=== PATIENT | male | born 1955 | race Caucasian/White ===

== ENCOUNTER 2020-05-27 16:06 | Observation (INO) | payer MEDICARE ==
--- NOTE | 2020-05-27 16:15 | ERPHSYRPT ---
- History of Present Illness Time Seen by Provider: 05/27/20 16:13 Source: patient Exam Limitations: no limitations Physician History: Patient is a 65-year-old male referred to our ED from her primary care doctor for evaluation of possible PE. Patient was diagnosed with a DVT today. Patient has been complaining of some shortness of breath. Patient has a history of PE DVT. Patient previously on blood thinner. Patient blood thinners were discontinued prior to the onset of current symptomology. No associated nausea or vomiting. No chest pain. Patient currently on antibiotics for cellulitis of the right lower extremity. Patient voices no other complaints. Timing/Duration: today Severity: moderate Modifying Factors: Improves With: other Associated Symptoms: shortness of breath, No nausea, No vomiting, No heartburn, No diaphoresis, No cough, No chills, No chest pain, No fever, No weakness Allergies/Adverse Reactions: rosuvastatin calcium [From Crestor] Adverse Reaction (Mild, Verified 05/27/20 16:15) Home Medications: Diclofenac Sodium [Diclofenac Sodium ER] 100 mg PO DAILY 05/27/20 [History] Hx Tetanus, Diphtheria Vaccination/Date Given: No Hx Influenza Vaccination/Date Given: No Hx Pneumococcal Vaccination/Date Given: No Travel Risk - International Travel Have you traveled outside of the country in past 3 weeks: No - Coronavirus Screening Are you exhibiting any of the following symptoms?: No Close contact with a COVID-19 positive Pt in past 14-21 Days: No - Review of Systems Constitutional: No Symptoms, No Fever, No Chills Eyes: No Symptoms Ears, Nose, & Throat: No Symptoms Respiratory: No Symptoms, No Cough, No Dyspnea Cardiac: No Symptoms, No Chest Pain, No Edema, No Syncope Abdominal/Gastrointestinal: No Symptoms, No Abdominal Pain, No Nausea, No Vomiting, No Diarrhea Genitourinary Symptoms: No Symptoms, No Dysuria Musculoskeletal: No Symptoms, No Back Pain, No Neck Pain Skin: No Symptoms, No Rash Neurological: No Symptoms, No Dizziness, No Focal Weakness, No Sensory Changes Psychological: No Symptoms Endocrine: No Symptoms Hematologic/Lymphatic: No Symptoms Immunological/Allergic: No Symptoms All Other Systems: Reviewed and Negative - Past Medical History Pertinent Past Medical History: Yes Neurological History: No Pertinent History ENT History: No Pertinent History Cardiac History: No Pertinent History Respiratory History: Asthma Endocrine Medical History: No Pertinent History Musculoskeletal History: No Pertinent History GI Medical History: Hernia, Ulcer History: No Pertinent History Psycho-Social History: Attention Deficit Disorder, Depression, Other Male Reproductive Disorders: No Pertinent History 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 - Past Surgical History Past Surgical History: Yes Neuro Surgical History: No Pertinent History Cardiac: No Pertinent History Respiratory: No Pertinent History Gastrointestinal: Hernia Repair Genitourinary: No Pertinent History Musculoskeletal: No Pertinent History Male Surgical History: Vasectomy Other Surgical History: CYST REMOVED - Social History Smoking Status: Never smoker Exposure to second hand smoke: No Drug Use: none Patient Lives Alone: No - Nursing Vital Signs Nursing Vital Signs: Initial Vital Signs Temperature 97.1 F 05/27/20 16:07 Pulse Rate 74 05/27/20 16:07 Respiratory Rate 16 05/27/20 16:07 Blood Pressure 141/81 05/27/20 16:07 O2 Sat by Pulse Oximetry 96 05/27/20 16:07 Pain Scale Pain Intensity 0 - Physical Exam General Appearance: no apparent distress, alert Eye Exam: PERRL/EOMI, eyes nml inspection Ears, Nose, Throat Exam: normal ENT inspection, TMs normal, pharynx normal, moist mucous membranes Neck Exam: normal inspection, non-tender, supple, full range of motion Respiratory Exam: normal breath sounds, lungs clear, No respiratory distress Cardiovascular Exam: regular rate/rhythm, normal heart sounds, normal peripheral pulses Gastrointestinal/Abdomen Exam: soft, normal bowel sounds, No tenderness, No mass Male Genitalia Exam: normal genitalia Back Exam: normal inspection, normal range of motion, No CVA tenderness, No aysha tebral tenderness Extremity Exam: normal inspection, normal range of motion, pelvis stable Neurologic Exam: alert, oriented x 3, cooperative, normal mood/affect, nml cerebellar function, nml station & gait, sensation nml, No motor deficits Skin Exam: normal color, warm, dry, No rash Lymphatic Exam: No adenopathy SpO2: 96 - Course Nursing assessment & vital signs reviewed: Yes EKG Interpreted by Me: RATE (66), Sinus Rhythm, NORMAL AXIS, NORMAL INTERVALS - CT Exams Chest CT Interpretation: Tele-radiologist Report (Pulmonary embolism.) Ordered Tests: Active Orders 24 hr Category Date Time Status [employer] STAT Care 05/27/20 16:16 Active EKG-ER Only STAT Care 05/27/20 16:15 Active IV Insertion STAT Care 05/27/20 16:15 Active Pulse Oximetry (ED) STAT Care 05/27/20 16:15 Active CHEST WITH CONTRAST [CT] Stat Exams 05/27/20 18:22 Taken CBC W DIFF Stat Lab 05/27/20 16:37 Completed CMP Stat Lab 05/27/20 16:37 Completed PROTIME WITH INR Stat Lab 05/27/20 16:37 Completed PTT Stat Lab 05/27/20 16:37 Completed TROPONIN Q3H Lab 05/27/20 16:37 Completed TROPONIN Q3H Lab 05/27/20 19:45 Completed TROPONIN Q3H Lab 05/27/20 22:30 Ordered TROPONIN Q3H Lab 05/28/20 01:30 Ordered TROPONIN Q3H Lab 05/28/20 04:30 Ordered Transfer Order Routine Transfer 05/27/20 Ordered Medication Summary Discontinued Medications Generic Name Dose Route Start Last Admin Trade Name Freq PRN Reason Stop Dose Admin Enoxaparin Sodium 100 mg 05/27/20 21:32 Enoxaparin Sodium SQ 05/27/20 21:33 STAT ONE Lab/Rad Data: Laboratory Result Diagrams 05/27/20 16:37 05/27/20 16:37 Laboratory Results 05/27/20 05/27/20 05/27/20 Range/Units 19:45 16:37 16:37 WBC (4.0-10.5) K/mm3 RBC (4.1-5.6) M/mm3 Hgb (12.5-18.0) gm/dl Hct (42-50) % MCV (78-100) fl MCH (26-32) pg MCHC (32-36) g/dl RDW (11.5-14.0) % Plt Count (150-450) K/mm3 MPV (7.5-11.0) fl Gran % (36.0-66.0) % Eos # (Auto) (0-0.5) Absolute Lymphs (auto) (1.0-4.6) Absolute Monos (auto) (0.0-1.3) Lymphocytes % (24.0-44.0) % Monocytes % (0.0-12.0) % Eosinophils % (0.00-5.0) % Basophils % (0.0-0.4) % Absolute Granulocytes (1.4-6.9) Basophils # (0-0.4) PT 13.4 H (8.83-12.87) SECONDS INR 1.18 (0.8-3.0) APTT 29.8 (24.1-36.1) SECONDS Sodium (137-145) mmol/L Potassium (3.5-5.1) mmol/L Chloride (98-107) mmol/L Carbon Dioxide (22-30) mmol/L Anion Gap (5-15) MEQ/L BUN (9-20) mg/dL Creatinine (0.66-1.25) mg/dL Estimated GFR ML/MIN Glucose (74-106) mg/dL Calcium (8.4-10.2) mg/dL Total Bilirubin (0.2-1.3) mg/dL AST (17-59) U/L ALT (0-50) U/L Alkaline Phosphatase (38-126) U/L Troponin I < 0.012 < 0.012 (0.000-0.034) ng/mL Serum Total Protein (6.3-8.2) g/dL Albumin (3.5-5.0) g/dL 05/27/20 05/27/20 Range/Units 16:37 16:37 WBC 9.0 (4.0-10.5) K/mm3 RBC 5.26 (4.1-5.6) M/mm3 Hgb 15.8 (12.5-18.0) gm/dl Hct 48.1 (42-50) % MCV 91.4 (78-100) fl MCH 30.0 (26-32) pg MCHC 32.8 (32-36) g/dl RDW 14.7 H (11.5-14.0) % Plt Count 219 (150-450) K/mm3 MPV 9.5 (7.5-11.0) fl Gran % 60.7 (36.0-66.0) % Eos # (Auto) 0.42 (0-0.5) Absolute Lymphs (auto) 2.29 (1.0-4.6) Absolute Monos (auto) 0.79 (0.0-1.3) Lymphocytes % 25.5 (24.0-44.0) % Monocytes % 8.8 (0.0-12.0) % Eosinophils % 4.7 (0.00-5.0) % Basophils % 0.3 (0.0-0.4) % Absolute Granulocytes 5.46 (1.4-6.9) Basophils # 0.03 (0-0.4) PT (8.83-12.87) SECONDS INR (0.8-3.0) APTT (24.1-36.1) SECONDS Sodium 138 (137-145) mmol/L Potassium 3.9 (3.5-5.1) mmol/L Chloride 104 (98-107) mmol/L Carbon Dioxide 25 (22-30) mmol/L Anion Gap 12.1 (5-15) MEQ/L BUN 19 (9-20) mg/dL Creatinine 0.95 (0.66-1.25) mg/dL Estimated GFR > 60.0 ML/MIN Glucose 90 (74-106) mg/dL Calcium 9.2 (8.4-10.2) mg/dL Total Bilirubin 0.70 (0.2-1.3) mg/dL AST 26 (17-59) U/L ALT 24 (0-50) U/L Alkaline Phosphatase 116 (38-126) U/L Troponin I (0.000-0.034) ng/mL Serum Total Protein 7.5 (6.3-8.2) g/dL Albumin 4.3 (3.5-5.0) g/dL - Progress Progress: improved Progress Note: Patient reassessed. Patient stable. No active shortness of breath. CTA chest reveals pulmonary embolism. Patient also known to have a right lower extremity DVT. Case discussed with Dr. Novoa who accepts admission to observation. Dr. ocampoonded on consult. Plan of care discussed with patient. He agrees to admission to [facility] for further evaluation and treatment. Lovenox dosed. 05/27/20 21:45 Discussed with : Flaco Will see patient in: hospital (observation) Counseled pt/family regarding: lab results, diagnosis, need for follow-up, rad results - Departure Departure Disposition: In-patient Admission Clinical Impression: Pulmonary embolism, DVT (deep venous thrombosis) Condition: Stable Critical Care Time: No Referrals: DAVEY PERLA, [Primary Care Provider] -
[2020-05-27 16:40] LABS: Absolute Neutrophil Ct (ANC) 5.46 (1.4-6.9); BASOPHIL % 0.3 % (0.0-0.4); Basophil (Absolute #) 0.03 (0-0.4); Eosinophil % 4.7 % (0.00-5.0); Eosinophil (Absolute #) 0.42 (0-0.5); Hematocrit 48.1 % (42-50); Hemoglobin 15.8 gm/dl (12.5-18.0); Lymphocyte (Absolute #) 2.29 (1.0-4.6); Lymphocytes % 25.5 % (24.0-44.0); Mean Cell Volume 91.4 fl (78-100); Mean Corpuscular Hgb Concent. 32.8 g/dl (32-36); Mean Platelet Volume 9.5 fl (7.5-11.0); Monocyte (Absolute #) 0.79 (0.0-1.3); Monocytes % 8.8 % (0.0-12.0); Neutrophil % 60.7 % (36.0-66.0); Platelet Count 219 K/mm3 (150-450); Red Blood Count 5.26 M/mm3 (4.1-5.6); Red Cell Distribution Width 14.7 % (11.5-14.0)
[2020-05-27 16:46] LABS: INR 1.18 (0.8-3.0); PROTIME 13.4 SECONDS (8.83-12.87)
[2020-05-27 16:49] LABS: PTT 29.8 SECONDS (24.1-36.1)
[2020-05-27 16:52] LABS: ALBUMIN 4.3 g/dL (3.5-5.0); ALKALINE PHOSPHATASE 116 U/L (38-126); ANION GAP 12.1 MEQ/L (5-15); BLOOD UREA NITROGEN 19 mg/dL (9-20); CHLORIDE 104 mmol/L (98-107); Calcium 9.2 mg/dL (8.4-10.2); Carbon Dioxide 25 mmol/L (22-30); Creatinine 1 0.95 mg/dL (0.66-1.25); Glucose 90 mg/dL (74-106); Potassium 3.9 mmol/L (3.5-5.1); SGOT/AST 26 U/L (17-59); SGPT/ALT 24 U/L (0-50); SODIUM 138 mmol/L (137-145); Total Protein 7.5 g/dL (6.3-8.2)
[2020-05-27] MEDS ORDERED: ENOXAPARIN SODIUM SQ ONE ×2 (21:32→21:57)
[2020-05-27] MEDS ORDERED: ENOXAPARIN SODIUM SQ STA (22:00)
[2020-05-28 06:05] LABS: Absolute Neutrophil Ct (ANC) 3.36 (1.4-6.9); BASOPHIL % 0.4 % (0.0-0.4); Basophil (Absolute #) 0.03 (0-0.4); Eosinophil % 6.4 % (0.00-5.0); Eosinophil (Absolute #) 0.43 (0-0.5); Hematocrit 45.2 % (42-50); Hemoglobin 14.7 gm/dl (12.5-18.0); Lymphocyte (Absolute #) 2.21 (1.0-4.6); Lymphocytes % 32.9 % (24.0-44.0); Mean Cell Volume 92.4 fl (78-100); Mean Corpuscular Hemoglobin 30.1 pg (26-32); Mean Corpuscular Hgb Concent. 32.5 g/dl (32-36); Mean Platelet Volume 9.6 fl (7.5-11.0); Monocyte (Absolute #) 0.69 (0.0-1.3); Monocytes % 10.3 % (0.0-12.0); Platelet Count 217 K/mm3 (150-450); Red Blood Count 4.89 M/mm3 (4.1-5.6); Red Cell Distribution Width 14.9 % (11.5-14.0); White Blood Count 6.7 K/mm3 (4.0-10.5)
[2020-05-28 06:40] LABS: ALKALINE PHOSPHATASE 102 U/L (38-126); ANION GAP 9.4 MEQ/L (5-15); BLOOD UREA NITROGEN 17 mg/dL (9-20); CHLORIDE 102 mmol/L (98-107); Calcium 8.9 mg/dL (8.4-10.2); Carbon Dioxide 30 mmol/L (22-30); Creatinine 1 0.97 mg/dL (0.66-1.25); Glucose 92 mg/dL (74-106); Potassium 4.2 mmol/L (3.5-5.1); SGOT/AST 24 U/L (17-59); SGPT/ALT 22 U/L (0-50); SODIUM 137 mmol/L (137-145); Total Protein 6.9 g/dL (6.3-8.2)
[2020-05-28 06:49] LABS: TROPONIN < 0.012 ng/mL (0.000-0.034)
--- NOTE | 2020-05-28 09:06 | XRAY ---
Exam: CT of the chest with IV contrast from 05/27/2020. CTDI: 44.72 mGy Comparison: CT of the chest with IV contrast from 11/29/2014. Indication: Right leg numbness, history of DVT in right leg, rule out PE. Technique: Post-IV contrast axial images were obtained through the chest during and following automated injection of 100 cc of Isovue-370 contrast material per PE protocol. Reconstructed coronal and sagittal images were created and reviewed. Findings: I again see multiple filling defects bilaterally within the distal left distal left main pulmonary artery, both lower lobe segmental arteries, and the left upper lobe pulmonary arteries consistent with extensive pulmonary embolism. Clot burden is at least moderate. There is relative sparing of the left upper lobe pulmonary arteries. The thoracic aorta appears of normal diameter and reveals no aneurysm or dissection. The heart size is normal without pericardial effusion. Bilateral epicardial fat pads are seen at the cardiophrenic angles. The thyroid gland appears grossly unremarkable. No abnormal mediastinal or perihilar lymphadenopathy is seen. There is a small hiatal hernia with mild surrounding fat density. The lungs reveal mild scattered bibasilar linear scarring and/or atelectasis. No airspace infiltrate or suspicious soft tissue lung nodule is seen. There is a small calcified granuloma seen at the medial aspect of the right middle lobe. The visualized upper abdomen reveals an unremarkable appearance of the adrenal glands. No other significant gross abnormality within the upper abdomen is seen. The skeleton reveals no acute fracture or aggressive bone lesion. Moderate degenerative disc disease is seen within the lower cervical spine. I also note moderate spondylosis with prominent osteophyte formation within the mid and lower thoracic spine, as well as the upper lumbar spine. Impression: 1. Compared to the prior CT of the chest from 11/29/2014, I again see moderately extensive bilateral pulmonary emboli with relative sparing of the right upper lobe segmental arteries. 2. Minimal scattered bibasilar fibrosis/scarring is seen. No acute infiltrates or pleural fluid is seen. 3. I again see a small hiatal hernia representing no change.
[2020-05-28] MEDS: NORCO 5/325 MG PO PRN (11:37)
--- NOTE | 2020-05-28 13:53 | PCM.HP.ADD ---
Addendum to History & Physical - History & Physical Addendum Addendum to History & Physical: This certifies that the History & Physical in the electronic chart reflects the current health status of the patient. If there are changes in the H&P these changes/exceptions are listed as follows. See office visit day of admission,no changes.
[2020-05-28] MEDS: VITAMIN D PO SCH (16:09)
[2020-05-28] MEDS ORDERED: ELIQUIS 2.5 MG TABLET PO SCH (18:00)
[2020-05-28] MEDS ORDERED: ELIQUIS 2.5 MG TABLET ONE (18:02)
[2020-05-28] MEDS: ELIQUIS 2.5 MG TABLET PO SCH (19:04)
[2020-05-29] MEDS: NORCO 5/325 MG PO PRN (04:08)
--- NOTE | 2020-05-29 08:48 | CONS ---
CONSULT DATE: 05/28/2020 HISTORY: Bandar Byers is a 65 year old male who has had previous history of deep venous thrombosis and pulmonary embolism back in 2012 and 2013. The patient reportedly was treated with anticoagulation for roughly about three to three and a half years at that time and was advised to go off of anticoagulation. He started experiencing right lower extremity swelling and tingling. He was initially suspected of having cellulitis and was treated with antibiotics. Although his symptoms persisted leading to additional studies including a Doppler that showed extensive deep venous thrombosis involving right lower extremity all the way from groin to medial malleolus. The patient has been hospitalized. He had a CT chest performed last night that showed multiple pulmonary emboli as well as involving multiple bilateral branches only sparing the right upper lobe area. The patient has been experiencing some shortness of breath. The patient reportedly started having symptoms after undergoing hernia repair surgery in 2012. He was advised rest in order to not have the hernia recur. He was treated back then with Xarelto and although it helped him it caused significant leg cramps. After about a year and a half of treatment, he was seen by a photographic lithographer in [place], [place] and was advised switching him to Coumadin. The patient again took Coumadin for about a year and a half. Apparently at that point he was advised to stop Coumadin and start aspirin. The patient has otherwise been in good health. He denies any previous pulmonary problems. A CT chest performed yesterday also shows some bilateral basilar fibrotic changes which will require monitoring in the future. PAST MEDICAL HISTORY: Besides the above history, the patient has had history of osteoarthritis likely from his body habitus. He has been on diclofenac sodium 100 mg daily for extended period of time. He denies history of cardiac problems, hypertension, diabetes or any other common medical problems. He has not followed up regularly with physician due to lack of insurance until he turned 65. PAST SURGICAL HISTORY: As above. PERSONAL AND SOCIAL HISTORY: He has been a nonsmoker but did have exposure to secondhand smoke from his father. MEDICATIONS: Home and current medications are reviewed. ALLERGIES: ROSUVASTATIN CALCIUM. REVIEW OF SYSTEMS: Positive for right leg pain, swelling and mild shortness of breath mainly with activity. He also reports significant knee pain and reportedly is in need of knee replacement at some point in the future. PHYSICAL EXAMINATION: This is an elderly male who appears otherwise very comfortable, able to carry on a good conversation, does not appear short of breath at rest. Vital signs are noted. HEENT: Normocephalic. Oral exam shows small oropharynx. NECK: Supple. CVS: First and second heart sounds are normal, regular, rhythmic. RESPIRATORY: Shows diminished breath sounds. ABDOMEN: Obese. EXTREMITIES: Right lower extremity appears swollen compared to left. LABORATORY DATA AND TESTS: CT chest and venous Doppler were reviewed. ASSESSMENT: This is a 65 year old male admitted with recurrent right lower extremity deep venous thrombosis with pulmonary emboli. It almost certainly appears that he has been having small clots over a period of time given the significant clot burden seen on CT scan. 1) Multiple bilateral pulmonary emboli. 2) Right lower extremity deep venous thrombosis, recurrent. 3) History of osteoarthritis and obesity. RECOMMENDATIONS: 1) I had a long discussion with the patient regarding the current coagulation. He has tried Xarelto in the past and other than cost factor no reservations. However request a different type if possible. Option of Eliquis along with alternative of Lovenox plus Coumadin were discussed with the patient. The patient and are in agreement with starting Eliquis. In view of this I would recommend restarting him back on Eliquis 10 mg p.o. b.i.d. for seven days followed by 5 mg p.o. b.i.d. The patient will need treatment for at least four months at which point a CT scan can be obtained with Doppler's to document resolution. Should he require surgery particularly orthopedic in the future, he may be briefly taken off at that point. He would also benefit from hypercoag work up this also can be done at a later point. 2) Will obtain 2D echocardiogram mainly to assess right ventricular pressure, pulmonary artery pressure given significant clot burden. 3) Risks, benefits, potential complications and precautions to exert while being on anticoagulation were discussed as well. The patient verbalized complete understanding and will request case management to get his [place] lightpon which will at least make it affordable for the first month. 4) The patient has been on NSAID's for prolonged period. Particularly given that he is going back on anticoagulation, I would prefer to switch his pain medications to [place] 5/325 mg every 12 hours PRN. Once the patient's clot burden has resolved and he receives the required total knee replacement surgery, he can certainly be able to go off of it at this point. However, a narcotic pain medication would be way safer from GI and renal standpoint. A prescription for both was left on the chart. I will see him in about two weeks or earlier if needed. I provided his with my office number as well. If any questions regarding Bandar Byers's care remains unanswered, please feel free to call me. Thank you, Dr. Frankel, for allowing me to participate in the care of Bandar Byers.
[2020-05-29] MEDS ORDERED: CHOLECALCIFEROL PO SCH (10:00)
[2020-05-29] MEDS: ELIQUIS 2.5 MG TABLET PO SCH (10:07)
[2020-05-29] MEDS: VITAMIN D PO SCH (10:08)
--- NOTE | 2020-05-29 11:51 | PCM.SSS ---
History of Present Illness - Chief Complaint Chief Complaint: DVT History of Present Illness: is a 65 year old male who was seen the day of admission in my office as a new patient visit and for follow up cellulitis right leg. He was seen at [facility] c/o fever and right leg redness a week ago , treated with Keflex for cellulitis. Because of patient's Hx of previous PE and left LE DVT stat doppler was done and was positive for extensive DVT right lower extremity. He was taken to ER for chest CT which was positive for PE. 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 - Review of Systems Constitutional: No Symptoms Ears, Nose, & Throat: Other (chronic sinusitis/allergies) Respiratory: Short Of Breath (states on exertion,felt to be from deconditioning) Cardiac: Edema (bilateral LE,denies chest pain or palpitations) Genitourinary Symptoms: No Symptoms Musculoskeletal: Back Pain, Joint Pain (knee OA ,hopes to have knee replacement this winter) Skin: Other (see HPI) Psychological: No Symptoms Hematologic/Lymphatic: Other (see HPI) Immunological/Allergic: Grass Allergy, Pollen Allergy Medications & Allergies Home Medications: Home Medication List Cholecalciferol (Vitamin D3) [Vitamin D] 1 cap PO DAILY 05/27/20 [History Confirmed 05/27/20] Diclofenac Sodium [Diclofenac Sodium ER] 100 mg PO DAILY 05/27/20 [History Confirmed 05/27/20] Apixaban [Eliquis] 5 mg PO BID 30 Days #60 tablet 05/28/20 [Rx] Apixaban [Eliquis] 10 mg PO BID 7 Days #28 tablet 05/28/20 [Rx] Allergies/Adverse Reactions: Allergies Allergy/AdvReac Type Severity Reaction Status Date / Time rosuvastatin calcium AdvReac Mild Verified 05/27/20 16:15 [From Crestor] - Past Medical History Past Medical History: Yes Neurological History: No Pertinent History ENT History: No Pertinent History, Other (chronic seasonal sinusitis) Cardiac History: No Pertinent History, Deep Vein Thrombosis Respiratory History: Asthma, Pulmonary Embolism (2012/2013) Endocrine Medical History: Other (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) Musculoskelatal History: No Pertinent History, Arthritis (knees and spine) GI Medical History: Hernia (umbilical hernia repair 2012), Ulcer History: No Pertinent History Pyscho-Social History: Attention Deficit Disorder, Depression, Other Male Reproductive Disorders: No Pertinent History Comment: 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, DVT LLE, PE - Past Surgical History Past Surgical History: Yes Neuro Surgical History: No Pertinent History Cardiac History: No Pertinent History Respiratory Surgery: No Pertinent History GI Surgical History: Hernia Repair Genitourinary Surgical Hx: No Pertinent History Musculskeletal Surgical Hx: No Pertinent History Male Surgical History: Vasectomy Other Surgical History: CYST REMOVED - Social History Smoking Status: Never smoker Exposure to second hand smoke: No Alcohol: None Drug Use: none - Physical Exam Vital Signs: Vital Signs - 24 hr Temp Pulse Resp BP Pulse Ox 05/29/20 10:07 93 L 05/29/20 07:50 97.6 F 69 20 104/59 93 L 05/29/20 04:04 98.3 F 83 19 124/78 93 L 05/28/20 23:41 98.2 F 74 18 125/58 88 L 05/28/20 21:15 93 L 05/28/20 20:00 98.6 F 80 16 131/63 93 L 05/28/20 16:00 98.2 F 67 16 140/91 94 L 05/28/20 12:00 98.2 F 70 16 137/91 95 General Appearance: no apparent distress, obese Neurologic Exam: alert, oriented x 3, cooperative, normal mood/affect, other (no focal neuro defecits) Eye Exam: eyes nml inspection Ears, Nose, Throat Exam: normal ENT inspection, moist mucous membranes Neck Exam: normal inspection, non-tender, other (no carotid bruit,no JVD,no mass,thyroid palpable nontender) Respiratory Exam: diminished breath sounds (wheeze no ronchi no rales no pain or cough with deep breath) Cardiovascular Exam: regular rate/rhythm, normal heart sounds, edema (bilateral LE right > left) Gastrointestinal/Abdomen Exam: soft, normal bowel sounds (nontender) Rectal Exam: not done Extremity Exam: normal range of motion, swelling (bilateral LE generalized non pitting edema ,right with slight redness compaired to the left,no calf tenderness), other (DJD changes bilateral knees not red or hot.) Skin Exam: normal color, warm, dry Results - Radiology Impressions Radiology Exams & Impressions: Radiology Procedures Category Date Time Status CHEST WITH CONTRAST [CT] Stat Exams 05/27/20 18:22 Completed ECHO W/2D AND DOPPLER [US] Routine Exams 05/29/20 08:00 Taken Assessment/Plan (1) DVT (deep venous thrombosis) Current Visit: Yes Status: Acute Qualifiers: DVT location: lower extremity Chronicity: acute Laterality: right Assessment & Plan: extensive (2) Pulmonary embolism Current Visit: Yes Status: Acute Assessment & Plan: appears subacute-see Dr Morton's consult notes Code(s): I26.99 - OTHER PULMONARY EMBOLISM WITHOUT ACUTE COR PULMONALE (3) Hypoxia, sleep related Current Visit: Yes Status: Acute Onset Date: Unknown Code(s): G47.34 - IDIO SLEEP RELATED NONOBSTRUCTIVE ALVEOLAR HYPOVENTILATION (4) DJD (degenerative joint disease) Current Visit: Yes Status: Chronic Qualifiers: Osteoarthritis location: knee Laterality: bilateral Assessment & Plan: Diclofenac discontinued. Code(s): M19.90 - UNSPECIFIED OSTEOARTHRITIS, UNSPECIFIED SITE Hospital Summary - Hospital Course Hospital Course: Patient was admitted for OBS after Dg DVT RLE and PE. He was given Lovenox injection in ER. He had stable VS with sats in the mid 90s while awake and no dyspnea at rest or with moving about in the room. He did not have cough or chest pain or palpitations. He did have desaturation to 87% during sleep . Pulmonology consult with Dr Morton was appreciated and he agreed patient could be discharged on Eliquis 10 mg BID after ECHO. An overnight oximetry study will be completed at home.We discussed that he will no be able to take NSAID for knee pain/arthritis(STOP Diclofenac) and Cosby 5mg bid will be used for now. He plans knee replacment if cleared for this winter. I will see him in my office next week or sooner if any need. - Vitals & Intake/Output Vital Signs: Vital Signs Temperature 97.6 F 05/29/20 07:50 Pulse Rate 69 05/29/20 07:50 Respiratory Rate 20 05/29/20 07:50 Blood Pressure 104/59 05/29/20 07:50 O2 Sat by Pulse Oximetry 93 L 05/29/20 10:07 Intake & Output: Intake & Output 05/26/20 05/27/20 05/28/20 05/29/20 11:59 11:59 11:59 11:59 Intake Total 1500 1320 Balance 1500 1320 Weight 165.4 kg - Lab Result Diagrams: 05/28/20 06:00 05/28/20 06:00 - Radiology Exams Ordered Rad Exams-Entire Visit: Radiology Procedures Category Date Time Status CHEST WITH CONTRAST [CT] Stat Exams 05/27/20 18:22 Completed ECHO W/2D AND DOPPLER [US] Routine Exams 05/29/20 08:00 Taken - Procedures and Test Procedures and Tests throughout Hospitalization: Therapy Orders & Screens 05/28/20 01:19 Oxygen NASAL CANNULA 2 lpm Comment: Diagnosis: DVT - Discharge Disposition: Home, Self-Care Condition: Stable Prescriptions: New Apixaban [Eliquis] 10 mg PO BID 7 Days #28 tablet Apixaban [Eliquis] 5 mg PO BID 30 Days #60 tablet No Action Diclofenac Sodium [Diclofenac Sodium ER] 100 mg PO DAILY Cholecalciferol (Vitamin D3) [Vitamin D] 1 cap PO DAILY Additional Instructions: DR MORTON APPOINTMENT AT [facility]. Follow up with: HAILE MORTON [ACTIVE STAFF] - 06/12/20 9:30 am DAVEY PERLA DO [Primary Care Provider] - 1 Week
[2020-05-29 12:32] VITALS: BP 142/88; PULSE 60; O2SAT 94
--- NOTE | 2020-05-29 13:06 | ECHO ---
Transthoracic echocardiographic examination and color Doppler was done on 05/29/2020. INDICATION: Pulmonary hypertension, history of pulmonary embolism. IMPRESSION: THE STUDY WAS SOMEWHAT LIMITED BECAUSE OF LIMITED ACOUSTIC WINDOW. The left ventricle was partially visualized but this demonstrated adequate motion of all the segments. Estimated global left ventricular ejection fraction between 50 and 60%. The left ventricular thickness appears to be normal. The right ventricle was mildly dilated. The mitral valve was mildly thickened. Color flow study did not show any significant regurgitation.
== END 2020-05-29 13:42 | disposition home or self-care (01) ==
LOC: ED 16:06 → MED SURG 22:16
PROVIDERS: ADMIT Family Medicine; ATTEND Family Medicine
DX: I82.401 Acute embolism and thrombosis of unspecified deep veins of right lower extremity (principal); I26.99 Other pulmonary embolism without acute cor pulmonale; M54.9 Dorsalgia, unspecified; G47.34 Idiopathic sleep related nonobstructive alveolar hypoventilation; M17.0 Bilateral primary osteoarthritis of knee; Z86.711 Personal history of pulmonary embolism; Z79.899 Other long term (current) drug therapy; Z79.01 Long term (current) use of anticoagulants
CPT/HCPCS: 36000; 36415; 71260; 80053; 84484; 85025; 85610; 85730; 93005; 93041; 93268; 93306; 94760; 94762; 96372; 99284; G0378; J1650; A9270-GY

== ENCOUNTER 2021-02-20 02:54 | Observation (INO) | payer MEDICARE ==
[2021-02-20] MEDS ORDERED: MORPHINE SULFATE 4 MG INJ IV ONE (02:57)
[2021-02-20] MEDS ORDERED: BABY ASPIRIN 81 MG CHEW PO ONE (02:57)
[2021-02-20] MEDS ORDERED: Zofran 4 MG/2 ML VIAL IV ONE (02:57)
[2021-02-20] MEDS ORDERED: Pepcid 20 MG VIAL IV ONE ×2 (02:57→03:02)
[2021-02-20] MEDS ORDERED: Zofran 4 MG/2 ML VIAL ONE (03:01)
[2021-02-20] MEDS ORDERED: BABY ASPIRIN 81 MG CHEW ONE (03:01)
[2021-02-20] MEDS ORDERED: MORPHINE SULFATE 4 MG INJ ONE (03:02)
--- NOTE | 2021-02-20 03:02 | ERPHSYRPT ---
- History of Present Illness Time Seen by Provider: 02/20/21 02:56 Historian: patient Exam Limitations: no limitations Physician History: 65 years old male with history of DVT on Eliquis presented in the ER with sudden onset left lower chest pain moderate intensity dull aching radiating to the back, without any significant aggravating or relieving factors. Denies any associated palpitations or shortness of breath. No fever chills or cough reported. Denies any nausea or history of acid reflux. Timing/Duration: hour(s) (3), constant, sudden, worse Activities at Onset: rest Quality: aching, dullness Location: central Chest Pain Radiation: back Severity of Pain-Max: moderate Severity of Pain-Current: moderate Modifying Factors: Improves With: nothing Associated Symptoms: denies symptoms Prior Chest Pain/Cardiac Workup: no prior chest pain, no prior cardiac workup Nitro Today/Relief: no nitro taken today Aspirin Treatment Today: no aspirin today Allergies/Adverse Reactions: rosuvastatin calcium [From Crestor] Adverse Reaction (Mild, Verified 02/20/21 08:48) Home Medications: Acetaminophen [Tylenol Extra Strength] 1,000 mg PO Q6H PRN 02/20/21 [History] Cyanocobalamin 1000 Mcg/ml [Cyanocobalamin B-12 1000 MCG/ML] 1,000 mcg IJ WEEKLY 02/20/21 [History] Hx Tetanus, Diphtheria Vaccination/Date Given: No Hx Influenza Vaccination/Date Given: No Hx Pneumococcal Vaccination/Date Given: No - Review of Systems Constitutional: No Symptoms Eyes: No Symptoms Ears, Nose, & Throat: No Symptoms Respiratory: No Symptoms Cardiac: Chest Pain Abdominal/Gastrointestinal: No Symptoms Genitourinary Symptoms: No Symptoms Musculoskeletal: Arthralgias Skin: No Symptoms Neurological: No Symptoms Psychological: No Symptoms Endocrine: No Symptoms Hematologic/Lymphatic: Blood Clots Immunological/Allergic: No Symptoms - Past Medical History Pertinent Past Medical History: Yes Neurological History: No Pertinent History ENT History: No Pertinent History, Other Cardiac History: No Pertinent History, Deep Vein Thrombosis Respiratory History: Asthma, Pulmonary Embolism Endocrine Medical History: Other Musculoskeletal History: No Pertinent History, Arthritis GI Medical History: Hernia (umbilical hernia repair 2012), Ulcer History: No Pertinent History Psycho-Social History: Attention Deficit Disorder, Depression, Other Male Reproductive Disorders: No Pertinent History 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, DVT LLE, PE - Past Surgical History Past Surgical History: Yes Neuro Surgical History: No Pertinent History Cardiac: No Pertinent History Respiratory: No Pertinent History Gastrointestinal: Hernia Repair Genitourinary: No Pertinent History Musculoskeletal: No Pertinent History Male Surgical History: Vasectomy Other Surgical History: CYST REMOVED - Social History Smoking Status: Never smoker Exposure to second hand smoke: No Drug Use: none Patient Lives Alone: No - Nursing Vital Signs Nursing Vital Signs: Initial Vital Signs Temperature 97.8 F 02/20/21 02:55 Pulse Rate 74 02/20/21 02:55 Respiratory Rate 16 02/20/21 02:55 Blood Pressure 152/94 02/20/21 02:55 O2 Sat by Pulse Oximetry 95 02/20/21 02:55 Pain Scale Pain Intensity 4 - Physical Exam General Appearance: no apparent distress, alert Eye Exam: PERRL/EOMI, eyes nml inspection Ears, Nose, Throat Exam: normal ENT inspection, pharynx normal Neck Exam: normal inspection, non-tender, supple, full range of motion Respiratory Exam: normal breath sounds, lungs clear Cardiovascular Exam: regular rate/rhythm, normal heart sounds Gastrointestinal/Abdomen Exam: soft, normal bowel sounds, No tenderness Back Exam: normal inspection, normal range of motion Extremity Exam: normal inspection, normal range of motion Neurologic Exam: alert, oriented x 3, cooperative Skin Exam: normal color SpO2 Interpretation: normal SpO2: 98 O2 Delivery: Room Air - Course EKG Interpreted by Me: RATE (73), Sinus Rhythm, NORMAL AXIS, NORMAL INTERVALS, NORMAL QRS Ordered Tests: Medication Summary Discontinued Medications Generic Name Dose Route Start Last Admin Trade Name Freq PRN Reason Stop Dose Admin Acetaminophen 650 mg 02/20/21 08:23 Tylenol 325 Mg PO 03/22/21 08:22 Q4H PRN PRN PAIN AND/OR FEVER Acetaminophen 1,000 mg 02/20/21 11:09 Tylenol Extra Strength 500 Mg PO 03/22/21 11:08 Q6H/PRN PRN PAIN Albuterol/Ipratropium 3 ml 02/20/21 08:23 Duoneb 0.5-3 Mg/3 Ml Neb IH 03/22/21 08:22 Q4HPRN PRN SHORTNESS OF BREATH/WHEEZING Apixaban 5 mg 02/20/21 12:00 02/20/21 11:45 Eliquis 2.5 Mg Tablet PO 03/22/21 11:59 5 mg BID DAVID Administration Aspirin 324 mg 02/20/21 02:57 02/20/21 03:05 Baby Aspirin 81 Mg Chew PO 02/20/21 02:58 324 mg STAT ONE Administration Aspirin Confirm 02/20/21 03:01 Baby Aspirin 81 Mg Chew Administered 02/20/21 03:02 Dose 324 mg .ROUTE .STK-MED ONE Cyanocobalamin 1,000 mcg 02/26/21 10:00 Cyanocobalamin B-12 1000 Mcg/Ml SQ 03/28/21 09:59 WEEKLY DAVID Famotidine 20 mg 02/20/21 02:57 02/20/21 03:05 Pepcid 20 Mg Vial IV 02/20/21 02:58 20 mg STAT ONE Administration Famotidine Confirm 02/20/21 03:02 Pepcid 20 Mg Vial Administered 02/20/21 03:03 Dose 20 mg IV .STK-MED ONE Famotidine 20 mg 02/20/21 10:00 02/20/21 10:17 Pepcid 20 Mg Vial IV 03/22/21 09:59 20 mg Q12HT DAVID Administration Morphine Sulfate 4 mg 02/20/21 02:57 02/20/21 03:06 Morphine Sulfate 4 Mg Inj IV 02/20/21 02:58 4 mg STAT ONE Administration Morphine Sulfate Confirm 02/20/21 03:02 Morphine Sulfate 4 Mg Inj Administered 02/20/21 03:03 Dose 4 mg .ROUTE .STK-MED ONE Morphine Sulfate 2 mg 02/20/21 08:23 Morphine Sulfate 2 Mg Inj IV 02/25/21 08:22 Q4H PRN PRN PAIN Ondansetron HCl 4 mg 02/20/21 02:57 02/20/21 03:13 Zofran 4 Mg/2 Ml Vial IV 02/20/21 02:58 4 mg STAT ONE Administration Ondansetron HCl Confirm 02/20/21 03:01 Zofran 4 Mg/2 Ml Vial Administered 02/20/21 03:02 Dose 4 mg .ROUTE .STK-MED ONE Ondansetron HCl 4 mg 02/20/21 08:23 Zofran 4 Mg/2 Ml Vial IV 03/22/21 08:22 Q6H PRN PRN NAUSEA/VOMITING Lab/Rad Data: Laboratory Result Diagrams 02/20/21 03:04 02/20/21 03:04 Laboratory Results 02/20/21 02/20/21 02/20/21 Range/Units 06:50 05:41 03:04 WBC (4.0-10.5) K/mm3 RBC (4.1-5.6) M/mm3 Hgb (12.5-18.0) gm/dl Hct (42-50) % MCV (78-100) fl MCH (26-32) pg MCHC (32-36) g/dl RDW (11.5-14.0) % Plt Count (150-450) K/mm3 MPV (7.5-11.0) fl Gran % (36.0-66.0) % Eos # (Auto) (0-0.5) Absolute Lymphs (auto) (1.0-4.6) Absolute Monos (auto) (0.0-1.3) Lymphocytes % (24.0-44.0) % Monocytes % (0.0-12.0) % Eosinophils % (0.00-5.0) % Basophils % (0.0-0.4) % Absolute Granulocytes (1.4-6.9) Basophils # (0-0.4) Sodium (137-145) mmol/L Potassium (3.5-5.1) mmol/L Chloride (98-107) mmol/L Carbon Dioxide (22-30) mmol/L Anion Gap (5-15) MEQ/L BUN (9-20) mg/dL Creatinine (0.66-1.25) mg/dL Estimated GFR ML/MIN Glucose (74-106) mg/dL Calcium (8.4-10.2) mg/dL Total Bilirubin (0.2-1.3) mg/dL AST (17-59) U/L ALT (0-50) U/L Alkaline Phosphatase (38-126) U/L Creatine Kinase (55-170) U/L Troponin I < 0.012 < 0.012 (0.000-0.034) ng/mL NT-Pro-B Natriuret Pep (0-900) pg/mL Serum Total Protein (6.3-8.2) g/dL Albumin (3.5-5.0) g/dL Lipase (23-300) U/L Influenza Type A Ag NEGATIVE (NEGATIVE) Influenza Type B Ag NEGATIVE (NEGATIVE) RSV (PCR) NEGATIVE (Negative) SARS-CoV-2 (PCR) NEGATIVE (NEGATIVE) 02/20/21 02/20/21 Range/Units 03:04 03:04 WBC 7.2 (4.0-10.5) K/mm3 RBC 5.75 H (4.1-5.6) M/mm3 Hgb 17.3 (12.5-18.0) gm/dl Hct 51.9 H (42-50) % MCV 90.3 (78-100) fl MCH 30.1 (26-32) pg MCHC 33.3 (32-36) g/dl RDW 14.8 H (11.5-14.0) % Plt Count 210 (150-450) K/mm3 MPV 9.6 (7.5-11.0) fl Gran % 68.5 H (36.0-66.0) % Eos # (Auto) 0.10 (0-0.5) Absolute Lymphs (auto) 1.63 (1.0-4.6) Absolute Monos (auto) 0.51 (0.0-1.3) Lymphocytes % 22.7 L (24.0-44.0) % Monocytes % 7.1 (0.0-12.0) % Eosinophils % 1.4 (0.00-5.0) % Basophils % 0.3 (0.0-0.4) % Absolute Granulocytes 4.91 (1.4-6.9) Basophils # 0.02 (0-0.4) Sodium 138 (137-145) mmol/L Potassium 3.5 (3.5-5.1) mmol/L Chloride 99 (98-107) mmol/L Carbon Dioxide 32 H (22-30) mmol/L Anion Gap 11.5 (5-15) MEQ/L BUN 13 (9-20) mg/dL Creatinine 0.97 (0.66-1.25) mg/dL Estimated GFR > 60.0 ML/MIN Glucose 139 H (74-106) mg/dL Calcium 9.4 (8.4-10.2) mg/dL Total Bilirubin 0.60 (0.2-1.3) mg/dL AST 26 (17-59) U/L ALT 23 (0-50) U/L Alkaline Phosphatase 126 (38-126) U/L Creatine Kinase 240 H (55-170) U/L Troponin I (0.000-0.034) ng/mL NT-Pro-B Natriuret Pep 36.2 (0-900) pg/mL Serum Total Protein 7.6 (6.3-8.2) g/dL Albumin 4.6 (3.5-5.0) g/dL Lipase 90 (23-300) U/L Influenza Type A Ag (NEGATIVE) Influenza Type B Ag (NEGATIVE) RSV (PCR) (Negative) SARS-CoV-2 (PCR) (NEGATIVE) - Progress Progress: improved, re-examined Air Movement: good Progress Note: 02/20/21 06:09 65 years old is evaluated for left-sided chest pain. EKG showed normal sinus rhythm with no acute ST elevations. Negative initial troponins. Patient is on Eliquis, no shortness of breath, no tachycardia, low suspicion for PE. Given morphine along with aspirin and his pain is much better but not completely resolved. Negative initial troponins. Chest x-ray I did not appreciate any obvious infiltrative process reviewed by me, official report is pending. Does not have any cardiac work-up done in the recent past. I have recommended observation with trending cardiac enzyme and work-up. Discussed with Dr. Novoa and patient is admitted for observation. Blood Culture(s) Obtained: No Antibiotics given: No Discussed with : Flaco Will see patient in: hospital (observation) Counseled pt/family regarding: lab results, diagnosis, rad results - Departure Departure Disposition: Observation Clinical Impression: Chest pain, rule out acute myocardial infarction Condition: Stable Critical Care Time: No
[2021-02-20 03:12] LABS: Absolute Neutrophil Ct (ANC) 4.91 (1.4-6.9); BASOPHIL % 0.3 % (0.0-0.4); Basophil (Absolute #) 0.02 (0-0.4); Eosinophil % 1.4 % (0.00-5.0); Hematocrit 51.9 % (42-50); Hemoglobin 17.3 gm/dl (12.5-18.0); Lymphocyte (Absolute #) 1.63 (1.0-4.6); Lymphocytes % 22.7 % (24.0-44.0); Mean Cell Volume 90.3 fl (78-100); Mean Corpuscular Hemoglobin 30.1 pg (26-32); Mean Corpuscular Hgb Concent. 33.3 g/dl (32-36); Mean Platelet Volume 9.6 fl (7.5-11.0); Monocyte (Absolute #) 0.51 (0.0-1.3); Monocytes % 7.1 % (0.0-12.0); Neutrophil % 68.5 % (36.0-66.0); Platelet Count 210 K/mm3 (150-450); Red Blood Count 5.75 M/mm3 (4.1-5.6); Red Cell Distribution Width 14.8 % (11.5-14.0); White Blood Count 7.2 K/mm3 (4.0-10.5)
[2021-02-20 03:30] LABS: ALBUMIN 4.6 g/dL (3.5-5.0); ALKALINE PHOSPHATASE 126 U/L (38-126); ANION GAP 11.5 MEQ/L (5-15); BLOOD UREA NITROGEN 13 mg/dL (9-20); CHLORIDE 99 mmol/L (98-107); CK-Creatinine Phosphokinase 240 U/L (55-170); Calcium 9.4 mg/dL (8.4-10.2); Carbon Dioxide 32 mmol/L (22-30); Creatinine 1 0.97 mg/dL (0.66-1.25); EST GLOMERULAR FILTRATION RATE > 60.0 ML/MIN; Glucose 139 mg/dL (74-106); LIPASE 90 U/L (23-300); NT PRO BNP 36.2 pg/mL (0-900); Potassium 3.5 mmol/L (3.5-5.1); SGOT/AST 26 U/L (17-59); SGPT/ALT 23 U/L (0-50); SODIUM 138 mmol/L (137-145); Total Protein 7.6 g/dL (6.3-8.2)
[2021-02-20 07:31] LABS: INFLUENZA A NEGATIVE (NEGATIVE); INFLUENZA B NEGATIVE (NEGATIVE); RESPIRATORY SYNCTIAL VIRUS NEGATIVE (Negative)
[2021-02-20] MEDS ORDERED: DUONEB 0.5-3 MG/3 ml Neb IH PRN (08:23)
[2021-02-20] MEDS ORDERED: Zofran 4 MG/2 ML VIAL IV PRN (08:23)
[2021-02-20] MEDS ORDERED: MORPHINE SULFATE 2 MG INJ IV PRN (08:23)
[2021-02-20] MEDS ORDERED: TYLENOL 325 MG PO PRN (08:23)
--- NOTE | 2021-02-20 08:53 | XRAY ---
Indication: Chest pain. Comparison: December 02, 2014. Portable chest again demonstrates minimal bibasilar subsegmental atelectasis/scarring less than before. Remaining heart and lungs unremarkable. Bony thorax intact again with mild degenerative changes.
[2021-02-20] MEDS ORDERED: Pepcid 20 MG VIAL IV SCH (10:00)
[2021-02-20] MEDS ORDERED: TYLENOL EXTRA STRENGTH 500 MG PO PRN (11:09)
[2021-02-20] MEDS ORDERED: ELIQUIS 2.5 MG TABLET PO SCH (12:00)
[2021-02-20 13:21] VITALS: BP 138/71; PULSE 101
--- NOTE | 2021-02-20 14:57 | PCM.SSS ---
History of Present Illness - Chief Complaint Chief Complaint: Chest pain rule out [place] History of Present Illness: is a 65 year old male who presented to ER with left sided back and chest discomfort. Medications & Allergies Home Medications: Home Medication List Apixaban [Eliquis] 5 mg PO BID 30 Days #60 tablet 05/28/20 [Rx Confirmed 02/20] Acetaminophen [Tylenol Extra Strength] 1,000 mg PO Q6H PRN 02/20/21 [History Confirmed 02/20/21] Cyanocobalamin 1000 Mcg/ml [Cyanocobalamin B-12 1000 MCG/ML] 1,000 mcg IJ WEEKLY 02/20/21 [History Confirmed 02/20/21] Methocarbamol 500 mg [Robaxin 500 MG] 500 mg PO BIDPRN PRN #30 tablet 02/20/21 [Rx] Allergies/Adverse Reactions: Allergies Allergy/AdvReac Type Severity Reaction Status Date / Time rosuvastatin calcium AdvReac Mild Verified 02/20/21 08:48 [From Crestnj] - Past Medical History Past Medical History: Yes Neurological History: No Pertinent History ENT History: No Pertinent History, Other Cardiac History: No Pertinent History, Deep Vein Thrombosis Respiratory History: Asthma, Pulmonary Embolism Endocrine Medical History: Other Musculoskelatal History: No Pertinent History, Arthritis GI Medical History: Hernia, Ulcer History: No Pertinent History Pyscho-Social History: Attention Deficit Disorder, Depression, Other Male Reproductive Disorders: No Pertinent History Comment: 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, DVT LLE, PE - Past Surgical History Past Surgical History: Yes Neuro Surgical History: No Pertinent History Cardiac History: No Pertinent History Respiratory Surgery: No Pertinent History GI Surgical History: Hernia Repair Genitourinary Surgical Hx: No Pertinent History Musculskeletal Surgical Hx: No Pertinent History Male Surgical History: Vasectomy Other Surgical History: CYST REMOVED - Social History Smoking Status: Never smoker Exposure to second hand smoke: No Alcohol: None Drug Use: none - Physical Exam Vital Signs: Vital Signs - 24 hr Temp Pulse Pulse Resp BP Pulse Ox 02/20/21 12:00 97.8 F 101 H 19 138/71 96 02/20/21 08:37 80 113/61 98 02/20/21 08:28 98.8 F 105 H 18 136/89 95 02/20/21 07:05 70 18 132/66 95 02/20/21 06:13 98 02/20/21 06:00 64 14 128/64 97 02/20/21 05:06 63 15 99/57 97 02/20/21 04:07 61 14 128/74 98 02/20/21 02:55 97.8 F 81 74 16 152/94 95 Results - Labs Lab/Micro Results: Lab Results-Last 24 Hours 02/20/21 02/20/21 02/20/21 Range/Units 03:04 03:04 03:04 WBC 7.2 (4.0-10.5) K/mm3 RBC 5.75 H (4.1-5.6) M/mm3 Hgb 17.3 (12.5-18.0) gm/dl Hct 51.9 H (42-50) % MCV 90.3 (78-100) fl MCH 30.1 (26-32) pg MCHC 33.3 (32-36) g/dl RDW 14.8 H (11.5-14.0) % Plt Count 210 (150-450) K/mm3 MPV 9.6 (7.5-11.0) fl Gran % 68.5 H (36.0-66.0) % Eos # (Auto) 0.10 (0-0.5) Absolute Lymphs (auto) 1.63 (1.0-4.6) Absolute Monos (auto) 0.51 (0.0-1.3) Lymphocytes % 22.7 L (24.0-44.0) % Monocytes % 7.1 (0.0-12.0) % Eosinophils % 1.4 (0.00-5.0) % Basophils % 0.3 (0.0-0.4) % Absolute Granulocytes 4.91 (1.4-6.9) Basophils # 0.02 (0-0.4) Sodium 138 (137-145) mmol/L Potassium 3.5 (3.5-5.1) mmol/L Chloride 99 (98-107) mmol/L Carbon Dioxide 32 H (22-30) mmol/L Anion Gap 11.5 (5-15) MEQ/L BUN 13 (9-20) mg/dL Creatinine 0.97 (0.66-1.25) mg/dL Estimated GFR > 60.0 ML/MIN Glucose 139 H (74-106) mg/dL Calcium 9.4 (8.4-10.2) mg/dL Total Bilirubin 0.60 (0.2-1.3) mg/dL AST 26 (17-59) U/L ALT 23 (0-50) U/L Alkaline Phosphatase 126 (38-126) U/L Creatine Kinase 240 H (55-170) U/L Troponin I < 0.012 (0.000-0.034) ng/mL NT-Pro-B Natriuret Pep 36.2 (0-900) pg/mL Serum Total Protein 7.6 (6.3-8.2) g/dL Albumin 4.6 (3.5-5.0) g/dL Lipase 90 (23-300) U/L Influenza Type A Ag (NEGATIVE) Influenza Type B Ag (NEGATIVE) RSV (PCR) (Negative) SARS-CoV-2 (PCR) (NEGATIVE) 02/20/21 02/20/21 02/20/21 Range/Units 05:41 06:50 08:59 WBC (4.0-10.5) K/mm3 RBC (4.1-5.6) M/mm3 Hgb (12.5-18.0) gm/dl Hct (42-50) % MCV (78-100) fl MCH (26-32) pg MCHC (32-36) g/dl RDW (11.5-14.0) % Plt Count (150-450) K/mm3 MPV (7.5-11.0) fl Gran % (36.0-66.0) % Eos # (Auto) (0-0.5) Absolute Lymphs (auto) (1.0-4.6) Absolute Monos (auto) (0.0-1.3) Lymphocytes % (24.0-44.0) % Monocytes % (0.0-12.0) % Eosinophils % (0.00-5.0) % Basophils % (0.0-0.4) % Absolute Granulocytes (1.4-6.9) Basophils # (0-0.4) Sodium (137-145) mmol/L Potassium (3.5-5.1) mmol/L Chloride (98-107) mmol/L Carbon Dioxide (22-30) mmol/L Anion Gap (5-15) MEQ/L BUN (9-20) mg/dL Creatinine (0.66-1.25) mg/dL Estimated GFR ML/MIN Glucose (74-106) mg/dL Calcium (8.4-10.2) mg/dL Total Bilirubin (0.2-1.3) mg/dL AST (17-59) U/L ALT (0-50) U/L Alkaline Phosphatase (38-126) U/L Creatine Kinase (55-170) U/L Troponin I < 0.012 < 0.012 (0.000-0.034) ng/mL NT-Pro-B Natriuret Pep (0-900) pg/mL Serum Total Protein (6.3-8.2) g/dL Albumin (3.5-5.0) g/dL Lipase (23-300) U/L Influenza Type A Ag NEGATIVE (NEGATIVE) Influenza Type B Ag NEGATIVE (NEGATIVE) RSV (PCR) NEGATIVE (Negative) SARS-CoV-2 (PCR) NEGATIVE (NEGATIVE) 02/20/21 Range/Units 12:18 WBC (4.0-10.5) K/mm3 RBC (4.1-5.6) M/mm3 Hgb (12.5-18.0) gm/dl Hct (42-50) % MCV (78-100) fl MCH (26-32) pg MCHC (32-36) g/dl RDW (11.5-14.0) % Plt Count (150-450) K/mm3 MPV (7.5-11.0) fl Gran % (36.0-66.0) % Eos # (Auto) (0-0.5) Absolute Lymphs (auto) (1.0-4.6) Absolute Monos (auto) (0.0-1.3) Lymphocytes % (24.0-44.0) % Monocytes % (0.0-12.0) % Eosinophils % (0.00-5.0) % Basophils % (0.0-0.4) % Absolute Granulocytes (1.4-6.9) Basophils # (0-0.4) Sodium (137-145) mmol/L Potassium (3.5-5.1) mmol/L Chloride (98-107) mmol/L Carbon Dioxide (22-30) mmol/L Anion Gap (5-15) MEQ/L BUN (9-20) mg/dL Creatinine (0.66-1.25) mg/dL Estimated GFR ML/MIN Glucose (74-106) mg/dL Calcium (8.4-10.2) mg/dL Total Bilirubin (0.2-1.3) mg/dL AST (17-59) U/L ALT (0-50) U/L Alkaline Phosphatase (38-126) U/L Creatine Kinase (55-170) U/L Troponin I < 0.012 (0.000-0.034) ng/mL NT-Pro-B Natriuret Pep (0-900) pg/mL Serum Total Protein (6.3-8.2) g/dL Albumin (3.5-5.0) g/dL Lipase (23-300) U/L Influenza Type A Ag (NEGATIVE) Influenza Type B Ag (NEGATIVE) RSV (PCR) (Negative) SARS-CoV-2 (PCR) (NEGATIVE) - Radiology Impressions Radiology Exams & Impressions: Radiology Procedures Category Date Time Status CHEST 1 VIEW (PORTABLE) Stat Exams 02/20/21 02:57 Completed Hospital Summary - Vitals & Intake/Output Vital Signs: Vital Signs Temperature 97.8 F 02/20/21 12:00 Pulse Rate 101 H 02/20/21 12:00 Respiratory Rate 19 02/20/21 12:00 Blood Pressure 138/71 02/20/21 12:00 O2 Sat by Pulse Oximetry 96 02/20/21 12:00 Intake & Output: Intake & Output 02/18/21 02/19/21 02/20/21 02/21/21 11:59 11:59 11:59 11:59 Intake Total 240 120 Output Total 550 Balance -310 120 Weight 174.01 kg - Lab Result Diagrams: 02/20/21 03:04 02/20/21 03:04 Lab Results-Last 24 Hrs: Lab Results-Last 24 Hours 02/20/21 02/20/21 02/20/21 Range/Units 03:04 03:04 03:04 WBC 7.2 (4.0-10.5) K/mm3 RBC 5.75 H (4.1-5.6) M/mm3 Hgb 17.3 (12.5-18.0) gm/dl Hct 51.9 H (42-50) % MCV 90.3 (78-100) fl MCH 30.1 (26-32) pg MCHC 33.3 (32-36) g/dl RDW 14.8 H (11.5-14.0) % Plt Count 210 (150-450) K/mm3 MPV 9.6 (7.5-11.0) fl Gran % 68.5 H (36.0-66.0) % Eos # (Auto) 0.10 (0-0.5) Absolute Lymphs (auto) 1.63 (1.0-4.6) Absolute Monos (auto) 0.51 (0.0-1.3) Lymphocytes % 22.7 L (24.0-44.0) % Monocytes % 7.1 (0.0-12.0) % Eosinophils % 1.4 (0.00-5.0) % Basophils % 0.3 (0.0-0.4) % Absolute Granulocytes 4.91 (1.4-6.9) Basophils # 0.02 (0-0.4) Sodium 138 (137-145) mmol/L Potassium 3.5 (3.5-5.1) mmol/L Chloride 99 (98-107) mmol/L Carbon Dioxide 32 H (22-30) mmol/L Anion Gap 11.5 (5-15) MEQ/L BUN 13 (9-20) mg/dL Creatinine 0.97 (0.66-1.25) mg/dL Estimated GFR > 60.0 ML/MIN Glucose 139 H (74-106) mg/dL Calcium 9.4 (8.4-10.2) mg/dL Total Bilirubin 0.60 (0.2-1.3) mg/dL AST 26 (17-59) U/L ALT 23 (0-50) U/L Alkaline Phosphatase 126 (38-126) U/L Creatine Kinase 240 H (55-170) U/L Troponin I < 0.012 (0.000-0.034) ng/mL NT-Pro-B Natriuret Pep 36.2 (0-900) pg/mL Serum Total Protein 7.6 (6.3-8.2) g/dL Albumin 4.6 (3.5-5.0) g/dL Lipase 90 (23-300) U/L Influenza Type A Ag (NEGATIVE) Influenza Type B Ag (NEGATIVE) RSV (PCR) (Negative) SARS-CoV-2 (PCR) (NEGATIVE) 02/20/21 02/20/21 02/20/21 Range/Units 05:41 06:50 08:59 WBC (4.0-10.5) K/mm3 RBC (4.1-5.6) M/mm3 Hgb (12.5-18.0) gm/dl Hct (42-50) % MCV (78-100) fl MCH (26-32) pg MCHC (32-36) g/dl RDW (11.5-14.0) % Plt Count (150-450) K/mm3 MPV (7.5-11.0) fl Gran % (36.0-66.0) % Eos # (Auto) (0-0.5) Absolute Lymphs (auto) (1.0-4.6) Absolute Monos (auto) (0.0-1.3) Lymphocytes % (24.0-44.0) % Monocytes % (0.0-12.0) % Eosinophils % (0.00-5.0) % Basophils % (0.0-0.4) % Absolute Granulocytes (1.4-6.9) Basophils # (0-0.4) Sodium (137-145) mmol/L Potassium (3.5-5.1) mmol/L Chloride (98-107) mmol/L Carbon Dioxide (22-30) mmol/L Anion Gap (5-15) MEQ/L BUN (9-20) mg/dL Creatinine (0.66-1.25) mg/dL Estimated GFR ML/MIN Glucose (74-106) mg/dL Calcium (8.4-10.2) mg/dL Total Bilirubin (0.2-1.3) mg/dL AST (17-59) U/L ALT (0-50) U/L Alkaline Phosphatase (38-126) U/L Creatine Kinase (55-170) U/L Troponin I < 0.012 < 0.012 (0.000-0.034) ng/mL NT-Pro-B Natriuret Pep (0-900) pg/mL Serum Total Protein (6.3-8.2) g/dL Albumin (3.5-5.0) g/dL Lipase (23-300) U/L Influenza Type A Ag NEGATIVE (NEGATIVE) Influenza Type B Ag NEGATIVE (NEGATIVE) RSV (PCR) NEGATIVE (Negative) SARS-CoV-2 (PCR) NEGATIVE (NEGATIVE) 02/20/21 Range/Units 12:18 WBC (4.0-10.5) K/mm3 RBC (4.1-5.6) M/mm3 Hgb (12.5-18.0) gm/dl Hct (42-50) % MCV (78-100) fl MCH (26-32) pg MCHC (32-36) g/dl RDW (11.5-14.0) % Plt Count (150-450) K/mm3 MPV (7.5-11.0) fl Gran % (36.0-66.0) % Eos # (Auto) (0-0.5) Absolute Lymphs (auto) (1.0-4.6) Absolute Monos (auto) (0.0-1.3) Lymphocytes % (24.0-44.0) % Monocytes % (0.0-12.0) % Eosinophils % (0.00-5.0) % Basophils % (0.0-0.4) % Absolute Granulocytes (1.4-6.9) Basophils # (0-0.4) Sodium (137-145) mmol/L Potassium (3.5-5.1) mmol/L Chloride (98-107) mmol/L Carbon Dioxide (22-30) mmol/L Anion Gap (5-15) MEQ/L BUN (9-20) mg/dL Creatinine (0.66-1.25) mg/dL Estimated GFR ML/MIN Glucose (74-106) mg/dL Calcium (8.4-10.2) mg/dL Total Bilirubin (0.2-1.3) mg/dL AST (17-59) U/L ALT (0-50) U/L Alkaline Phosphatase (38-126) U/L Creatine Kinase (55-170) U/L Troponin I < 0.012 (0.000-0.034) ng/mL NT-Pro-B Natriuret Pep (0-900) pg/mL Serum Total Protein (6.3-8.2) g/dL Albumin (3.5-5.0) g/dL Lipase (23-300) U/L Influenza Type A Ag (NEGATIVE) Influenza Type B Ag (NEGATIVE) RSV (PCR) (Negative) SARS-CoV-2 (PCR) (NEGATIVE) - Radiology Exams Ordered Rad Exams-Entire Visit: Radiology Procedures Category Date Time Status CHEST 1 VIEW (PORTABLE) Stat Exams 02/20/21 02:57 Completed - Discharge Disposition: Home, Self-Care Condition: Stable Prescriptions: New Methocarbamol 500 mg [Robaxin 500 MG] 500 mg PO BIDPRN PRN #30 tablet PRN Reason: Muscle Spasms Continue Apixaban [Eliquis] 5 mg PO BID 30 Days #60 tablet Acetaminophen [Tylenol Extra Strength] 1,000 mg PO Q6H PRN PRN Reason: Pain Cyanocobalamin 1000 Mcg/ml [Cyanocobalamin B-12 1000 MCG/ML] 1,000 mcg IJ WEEKLY Follow up with: DAVEY PERLA DO [Primary Care Provider] - 03/02/21 10:00 am
[2021-02-20] MEDS ORDERED: NON-FORMULARY ITEM (Apixaban [Eliquis] 5 MG) PO SCH (22:00)
[2021-02-22 07:41] VITALS: O2SAT 98
[2021-02-26] MEDS ORDERED: Cyanocobalamin B-12 1000 MCG/ML SQ SCH (10:00)
== END 2021-02-20 15:45 | disposition home or self-care (01) ==
LOC: ED 02:54 → MED SURG 08:20
PROVIDERS: ADMIT Family Medicine; ATTEND Family Medicine
DX: R07.9 Chest pain, unspecified (principal); M54.9 Dorsalgia, unspecified; Z86.718 Personal history of other venous thrombosis and embolism; Z79.01 Long term (current) use of anticoagulants; Z79.899 Other long term (current) drug therapy; Z20.828 Contact with and (suspected) exposure to other viral communicable diseases
CPT/HCPCS: 0241U; 36000; 36415; 71045; 80053; 82550; 83690; 83880; 84484; 85025; 93005; 93041; 93268; 96374; 96375; 99285; G0378; J2270; J2405; A9270-GY

== ENCOUNTER 2022-03-07 02:08 | Inpatient (IN) | payer MEDICARE ==
[2022-03-07] MEDS ORDERED: Zofran 4 MG/2 ML VIAL ONE (02:14)
[2022-03-07] MEDS ORDERED: Zofran 4 MG/2 ML VIAL IV ONE (02:21)
[2022-03-07] MEDS ORDERED: Sodium Chloride 0.9% 1000 ML 1,000 ML IV STA (02:21)
[2022-03-07] MEDS ORDERED: Pepcid 20 MG VIAL IV ONE ×2 (02:21→02:27)
[2022-03-07] MEDS ORDERED: PROTONIX 40 MG IV IV ONE ×2 (02:21→02:27)
[2022-03-07] MEDS ORDERED: SUBLIMAZE 100 MCG/2 ML IV ONE (02:21)
--- NOTE | 2022-03-07 02:25 | ERPHSYRPT ---
- History of Present Illness Time Seen by Provider: 03/07/22 02:23 Historian: patient, family Exam Limitations: no limitations Patient Subjective Stated Complaint: Pt states "I started having belly pain yesterday and started throwing up 2 hours ago." Triage Nursing Assessment: Pt ambulates self to room by cane, pt alert and oriented x3, pt c/o umbilical abd pain since yesterday and started vomiting about 2 hours ago, pt denies fever or diarrhea, pt's last bowel movement yesterday, pt's bowel sounds present in all four quadrants Physician History: Pt states "I started having belly pain yesterday and started throwing up 2 hours ago." pt c/o umbilical abd pain since yesterday and started vomiting about 2 hours ago, pt denies fever or diarrhea, pt's last bowel movement yesterday Timing/Duration: today Quality: cramping Abdominal Pain Onset Location: periumbilical Pain Radiation: no radiation Severity of Pain-Max: moderate Severity of Pain-Current: moderate Modifying Factors: Improves With: nothing Associated Symptoms: denies symptoms Previous symptoms: no prior history Allergies/Adverse Reactions: rosuvastatin calcium [From Crestor] Adverse Reaction (Mild, Verified 03/07/22 02:23) Home Medications: Acetaminophen [Tylenol Extra Strength] 1,000 mg PO Q6H PRN PRN 02/20/21 [History] Cyanocobalamin 1000 Mcg/ml [Cyanocobalamin B-12 1000 MCG/ML] 1,000 mcg IJ Q21D 02/20/21 [History] Escitalopram Oxalate [Lexapro] 20 mg PO HS 07/09/21 [History] Testosterone [Androgel] 3 pump TD DAILY 07/09/21 [History] Warfarin Sodium 0 mg PO DAILY 07/09/21 [History] Hx Tetanus, Diphtheria Vaccination/Date Given: No Hx Influenza Vaccination/Date Given: No Hx Pneumococcal Vaccination/Date Given: No Immunizations Up to Date: Yes Travel Risk - International Travel Have you traveled outside of the country in past 3 weeks: No - Coronavirus Screening Are you exhibiting any of the following symptoms?: No Close contact with a COVID-19 positive Pt in past 14-21 Days: No - Vaccine Status Have you recieved a Covid-19 vaccination: Yes Special Needs Caregiver: Moderna - Vaccination Dates Date of 2cond Vaccination (if applicable): 01/13/21 - Review of Systems Constitutional: No Fever, No Chills Eyes: No Symptoms Ears, Nose, & Throat: No Symptoms Respiratory: No Cough, No Dyspnea Cardiac: No Chest Pain, No Edema, No Syncope Abdominal/Gastrointestinal: Abdominal Pain, Nausea, Vomiting, No Diarrhea Genitourinary Symptoms: No Dysuria Musculoskeletal: No Back Pain, No Neck Pain Skin: No Rash Neurological: No Dizziness, No Focal Weakness, No Sensory Changes Psychological: No Symptoms Endocrine: No Symptoms All Other Systems: Reviewed and Negative - Past Medical History Pertinent Past Medical History: Yes Neurological History: No Pertinent History ENT History: No Pertinent History, Other Cardiac History: No Pertinent History, Deep Vein Thrombosis Respiratory History: Asthma, Pulmonary Embolism Endocrine Medical History: Other Musculoskeletal History: No Pertinent History, Arthritis GI Medical History: Hernia, Ulcer History: No Pertinent History Psycho-Social History: Attention Deficit Disorder, Depression, Other Male Reproductive Disorders: No Pertinent History 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, DVT LLE, PE - Past Surgical History Past Surgical History: Yes Neuro Surgical History: No Pertinent History Cardiac: No Pertinent History Respiratory: No Pertinent History Gastrointestinal: Hernia Repair Genitourinary: No Pertinent History Musculoskeletal: No Pertinent History Male Surgical History: Vasectomy Other Surgical History: CYST REMOVED - Social History Smoking Status: Never smoker Exposure to second hand smoke: No Drug Use: none Patient Lives Alone: No - Nursing Vital Signs Nursing Vital Signs: Initial Vital Signs Temperature 97.7 F 03/07/22 02:22 Pulse Rate 88 03/07/22 02:22 Respiratory Rate 18 03/07/22 02:22 Blood Pressure 130/85 03/07/22 02:22 O2 Sat by Pulse Oximetry 93 L 03/07/22 02:22 Pain Scale Pain Intensity 4 - Physical Exam General Appearance: no apparent distress, alert Eye Exam: PERRL/EOMI, eyes nml inspection Ears, Nose, Throat Exam: normal ENT inspection, pharynx normal, moist mucous membranes Neck Exam: normal inspection, non-tender, supple, full range of motion Respiratory Exam: normal breath sounds, lungs clear, No respiratory distress Cardiovascular Exam: regular rate/rhythm, normal heart sounds Gastrointestinal/Abdomen Exam: soft, tenderness, No distention, No mass, No pulsatile mass, No rebound Back Exam: normal inspection, normal range of motion, No CVA tenderness, No vertebral tenderness Extremity Exam: normal inspection, normal range of motion, pelvis stable Neurologic Exam: alert, oriented x 3, cooperative, normal mood/affect, nml cerebellar function, sensation nml, No motor deficits Skin Exam: normal color, warm, dry SpO2: 93 - Course Nursing assessment & vital signs reviewed: Yes - CT Exams Abdomen/Pelvis CT Interpretation: Tele-radiologist Report Ordered Tests: Active Orders 24 hr Category Date Time Status EKG-ER Only STAT Care 03/07/22 02:21 Active ABDOMEN AND PELVIS W/0 CONTRAS [CT] Stat Exams 03/07/22 02:21 Taken AMYLASE Stat Lab 03/07/22 02:43 Completed CBC W DIFF Stat Lab 03/07/22 02:43 Completed CMP Stat Lab 03/07/22 02:43 Completed UA W/RFX CULTURE Stat Lab 03/07/22 Ordered Medication Summary Discontinued Medications Generic Name Dose Route Start Last Admin Trade Name Freq PRN Reason Stop Dose Admin Famotidine 20 mg 03/07/22 02:21 03/07/22 02:28 Famotidine 20 Mg/1 Vial IV 03/07/22 02:22 20 mg STAT ONE Administration Famotidine Confirm 03/07/22 02:27 Famotidine 20 Mg/1 Vial Administered 03/07/22 02:28 Dose 20 mg IV .STK-MED ONE Fentanyl Citrate 50 mcg 03/07/22 02:21 03/07/22 02:28 Fentanyl Citrate 100 Mcg/2 Ml* Vial IV 03/07/22 02:22 50 mcg STAT ONE Administration Fentanyl Citrate Confirm 03/07/22 02:27 Fentanyl Citrate 100 Mcg/2 Ml* Vial Administered 03/07/22 02:28 Dose 100 mcg .ROUTE .STK-MED ONE Hydromorphone HCl 0.5 mg 03/07/22 03:11 03/07/22 03:17 Hydromorphone 1 Mg/1ml Inj 1 Mg/Ml Syringe IV 03/07/22 03:12 0.5 mg STAT ONE Administration Hydromorphone HCl Confirm 03/07/22 03:13 Hydromorphone 1 Mg/1ml Inj 1 Mg/Ml Syringe Administered 03/07/22 03:14 Dose 1 mg .ROUTE .STK-MED ONE Sodium Chloride 1,000 mls @ 999 mls/hr 03/07/22 02:21 03/07/22 03:33 Sodium Chloride 0.9% 1000 Ml IV 03/07/22 03:21 Infused .Q1H1M STA Infusion Sodium Chloride Confirm 03/07/22 02:27 Sodium Chloride 0.9% 1000 Ml Administered 03/07/22 02:28 Dose 1,000 mls @ ud .ROUTE .STK-MED ONE Ceftriaxone Sodium/Dextrose 1 g in 50 mls @ 100 mls/hr 03/07/22 03:08 03/07/22 04:03 Rocephin 1 Gm-D5w 50 Ml Bag IV 03/07/22 03:37 Infused STAT STA Infusion Ceftriaxone Sodium/Dextrose Confirm 03/07/22 03:12 Rocephin 1 Gm-D5w 50 Ml Bag Administered 03/07/22 03:13 Dose 1 g in 50 mls @ ud IV .STK-MED ONE Metoclopramide HCl 10 mg 03/07/22 03:34 03/07/22 03:37 Metoclopramide Hcl 10 Mg/2 Ml Vial IV 03/07/22 03:35 10 mg STAT ONE Administration Metoclopramide HCl Confirm 03/07/22 03:36 Metoclopramide Hcl 10 Mg/2 Ml Vial Administered 03/07/22 03:37 Dose 10 mg .ROUTE .STK-MED ONE Ondansetron HCl Confirm 03/07/22 02:14 Ondansetron Hcl 4 Mg/2 Ml Vial Administered 03/07/22 02:15 Dose 4 mg .ROUTE .STK-MED ONE Ondansetron HCl 4 mg 03/07/22 02:21 03/07/22 02:26 Ondansetron Hcl 4 Mg/2 Ml Vial IV 03/07/22 02:22 4 mg STAT ONE Administration Pantoprazole Sodium 40 mg 03/07/22 02:21 03/07/22 02:28 Pantoprazole 40 Mg Vial IV 03/07/22 02:22 40 mg STAT ONE Administration Pantoprazole Sodium Confirm 03/07/22 02:27 Pantoprazole 40 Mg Vial Administered 03/07/22 02:28 Dose 40 mg IV .STK-MED ONE Lab/Rad Data: Laboratory Result Diagrams 03/07/22 02:43 03/07/22 02:43 Laboratory Results 03/07/22 03/07/22 Range/Units 02:43 02:43 WBC 12.3 H (4.0-10.5) x10^3/uL RBC 6.68 H (4.1-5.6) x10^6/uL Hgb 19.3 H (12.5-18.0) g/dL Hct 58.1 H (42-50) % MCV 87.0 (78-100) fL MCH 28.9 (26-32) pg MCHC 33.2 (32-36) g/dL RDW 16.8 H (11.5-14.0) % Plt Count 147 L (150-450) x10^3/uL MPV 11.6 H (7.5-11.0) fL Gran % 73.8 H (36.0-66.0) % Immature Gran % (Auto) 0.4 (0.00-0.4) % Nucleat RBC Rel Count 0.0 (0.00-0.1) % Eos # (Auto) 0.05 (0-0.5) x10^3/uL Immature Gran # (Auto) 0.05 H (0.00-0.03) x10^3u/L Absolute Lymphs (auto) 2.08 (1.0-4.6) x10^3/uL Absolute Monos (auto) 0.97 (0.0-1.3) x10^3/uL Absolute Nucleated RBC 0.00 (0.00-0.01) x10^3u/L Lymphocytes % 17.0 L (24.0-44.0) % Monocytes % 7.9 (0.0-12.0) % Eosinophils % 0.4 (0.00-5.0) % Basophils % 0.5 (0.0-0.4) % Absolute Granulocytes 9.06 H (1.4-6.9) x10^3/uL Basophils # 0.06 (0-0.4) x10^3/uL Sodium 139 (137-145) mmol/L Potassium 4.1 (3.5-5.1) mmol/L Chloride 102 (98-107) mmol/L Carbon Dioxide 22 (22-30) mmol/L Anion Gap 19.0 H (5-15) MEQ/L BUN 9 (9-20) mg/dL Creatinine 0.97 (0.66-1.25) mg/dL Estimated GFR > 60.0 ML/MIN Glucose 123 H (74-106) mg/dL Calcium 10.0 (8.4-10.2) mg/dL Total Bilirubin 5.00 H (0.2-1.3) mg/dL AST 619 H (17-59) U/L ALT 725 H (0-50) U/L Alkaline Phosphatase 214 H (38-126) U/L Serum Total Protein 8.1 (6.3-8.2) g/dL Albumin 4.8 (3.5-5.0) g/dL Amylase 3275 H (30-110) U/L Lipase Cancelled - Progress Progress: unchanged Discussed with : Flaco Will see patient in: hospital (full admit) Counseled pt/family regarding: lab results, diagnosis, need for follow-up, rad results - Departure Departure Disposition: In-patient Admission Clinical Impression: Pancreatitis due to biliary obstruction Qualifiers: Chronicity: acute Acute pancreatitis complication: no infection or necrosis Qualified Code(s): K85.10 - Biliary acute pancreatitis without necrosis or infection Condition: Fair Critical Care Time: Yes Critical Care Time(excluding separately billable procedures): Critical 30-74 mins Referrals: DAVEY PERLA DO [Primary Care Provider] - Follow up/PCP as directed
[2022-03-07] MEDS ORDERED: Sodium Chloride 0.9% 1000 ML 0 ML ONE (02:27)
[2022-03-07] MEDS ORDERED: SUBLIMAZE 100 MCG/2 ML ONE (02:27)
[2022-03-07 02:46] LABS: Absolute Neutrophil Ct (ANC) 9.06 x10^3/uL (1.4-6.9); Basophil (Absolute #) 0.06 x10^3/uL (0-0.4); Eosinophil % 0.4 % (0.00-5.0); Eosinophil (Absolute #) 0.05 x10^3/uL (0-0.5); Hematocrit 58.1 % (42-50); Hemoglobin 19.3 g/dL (12.5-18.0); Lymphocyte (Absolute #) 2.08 x10^3/uL (1.0-4.6); Mean Corpuscular Hemoglobin 28.9 pg (26-32); Mean Corpuscular Hgb Concent. 33.2 g/dL (32-36); Mean Platelet Volume 11.6 fL (7.5-11.0); Monocyte (Absolute #) 0.97 x10^3/uL (0.0-1.3); Monocytes % 7.9 % (0.0-12.0); Neutrophil % 73.8 % (36.0-66.0); Platelet Count 147 x10^3/uL (150-450); Red Blood Count 6.68 x10^6/uL (4.1-5.6); Red Cell Distribution Width 16.8 % (11.5-14.0); White Blood Count 12.3 x10^3/uL (4.0-10.5)
[2022-03-07] MEDS ORDERED: ROCEPHIN 1 Gm-D5w 50 ml Bag** 1 G/50 ML IVPB IV STA (03:08)
[2022-03-07] MEDS ORDERED: Hydromorphone 1 mg/ml Injection IV ONE (03:11)
[2022-03-07] MEDS ORDERED: ROCEPHIN 1 Gm-D5w 50 ml Bag** 1 G/50 ML IVPB IV ONE (03:12)
[2022-03-07] MEDS ORDERED: Hydromorphone 1 mg/ml Injection ONE (03:13)
[2022-03-07 03:32] LABS: ALBUMIN 4.8 g/dL (3.5-5.0); ALKALINE PHOSPHATASE 214 U/L (38-126); BLOOD UREA NITROGEN 9 mg/dL (9-20); CHLORIDE 102 mmol/L (98-107); Carbon Dioxide 22 mmol/L (22-30); Creatinine 1 0.97 mg/dL (0.66-1.25); EST GLOMERULAR FILTRATION RATE > 60.0 ML/MIN; Glucose 123 mg/dL (74-106); Potassium 4.1 mmol/L (3.5-5.1); SGOT/AST 619 U/L (17-59); SGPT/ALT 725 U/L (0-50); SODIUM 139 mmol/L (137-145); Total Protein 8.1 g/dL (6.3-8.2)
[2022-03-07] MEDS ORDERED: Reglan 10 MG/2 ML IV ONE (03:34)
[2022-03-07] MEDS ORDERED: Reglan 10 MG/2 ML ONE (03:36)
[2022-03-07 03:51] LABS: AMYLASE 3275 U/L (30-110)
[2022-03-07 05:07] LABS: INFLUENZA A NEGATIVE (NEGATIVE); INFLUENZA B NEGATIVE (NEGATIVE); RESPIRATORY SYNCTIAL VIRUS NEGATIVE (Negative); SARS-CoV-2 Xpert Express NEGATIVE (NEGATIVE)
[2022-03-07 06:09] LABS: Appearance CLEAR (CLEAR); Bilirubin MODERATE (NEGATIVE); Dipstick done @ ? MAIN LAB; Glucose NEGATIVE (NEGATIVE); Ketones MODERATE-40 (NEGATIVE); Nitrite NEGATIVE (NEGATIVE); Ph 5.5 (5-6); Protein,Urine Dip TRACE (Negative); RBC TRACE-INTACT Ery/ul (0-5); Urobilinogen 1 mg/dL (0-1)
[2022-03-07] MEDS ORDERED: Sodium Chloride 0.9% W/ 20 mEq KCl/LITER 1,000 ML IV SCH (06:16)
[2022-03-07] MEDS ORDERED: HUMALOG SQ PRN (06:16)
[2022-03-07] MEDS ORDERED: Sodium Chloride 0.9% 1000 ML 1,000 ML ONE (06:19)
[2022-03-07 06:40] LABS: Bacteria RARE /HPF (NEGATIVE); Mucus SLIGHT /HPF (NEGATIVE)
[2022-03-07 06:41] LABS: Urine Cultured Indicated? YES
[2022-03-07 07:29] LABS: INR 2.67 (0.8-3.0); PROTIME 25.9 SECONDS (9.4-12.5)
[2022-03-07] MEDS: Hydromorphone 1 mg/ml Injection IV PRN ×3 (08:14→19:01)
--- NOTE | 2022-03-07 08:37 | XRAY ---
Indication: Periumbilical pain. Multiple contiguous axial images obtained through the abdomen and pelvis without contrast. Comparison: June 06, 2020. Lung bases again demonstrates mild bibasilar dependent atelectasis and tiny right middle lobe calcified granuloma. Heart not enlarged. Stable small hiatal hernia. Noncontrasted stomach and bowel loops appear nonobstructed with normal appendix. Again mild scattered descending and sigmoid diverticulosis without diverticulitis. New pancreatic edema with peripancreatic stranding favoring acute pancreatitis. Tiny free fluid adjacent to tail of pancreas but no walled off fluid collection/phlegmon or free air. Stable tiny splenic calcified granulomas. Remaining liver, gallbladder, spleen, adrenal glands, kidneys, ureters, and bladder are unremarkable for noncontrast exam. Again minimal scattered aortoiliac calcifications without AAA. Osseous structures intact again with moderate degenerative changes throughout the spine. Intact midline ventral hernia mesh graft. Impression: 1. New CT findings for acute pancreatitis with small free fluid. 2. Again chronic findings including colonic diverticulosis, small hiatal hernia, chronic bony findings, and old granulomatous disease. Comment: Preliminary interpretation made by C. No critical discrepancy.
[2022-03-07] MEDS: Zofran 4 MG/2 ML VIAL IV PRN ×2 (08:44→23:00)
[2022-03-07] MEDS ORDERED: ENOXAPARIN SODIUM SQ SCH (10:00)
--- NOTE | 2022-03-07 11:18 | PCM.SSS ---
History of Present Illness - Chief Complaint Chief Complaint: pancreatitis History of Present Illness: is a 66 year old male who presented to ER with periumbilical pain,N/V without fever or diarrhea. Noncontrasted CT abd /pelvis consistent with pancreatitis. LABS : total bili=5.0,NFW=603,FJW=346,Alk nwcz=985,amylase =3275 and lipase sent out to [facility] "not able to read". General surgery consult with Dr Jatin Garrett rec transfer [facility] for ERCP. Patient does not drink alcohol,has never smoked. His BMI is 48.7. Hx DVT and PE currently on Coumadin but held for probable proceedure(was followed by Automation Test Developer Dr Simon Hernandez now Dr Vincent Steven) Patient is followed by Hogshead Weigher Dr Silvestre Wilson for Hyperinsulinemia. 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 - Review of Systems Constitutional: No Symptoms Eyes: No Symptoms Ears, Nose, & Throat: No Symptoms Respiratory: No Symptoms Cardiac: No Symptoms Abdominal/Gastrointestinal: Abdominal Pain, Nausea, Vomiting (dry heaves) Genitourinary Symptoms: No Symptoms Musculoskeletal: Back Pain (chronic), Joint Pain (knees) Skin: No Symptoms Medications & Allergies Home Medications: Home Medication List Cyanocobalamin 1000 Mcg/ml [Cyanocobalamin B-12 1000 MCG/ML] 1,000 mcg IJ Q21D 02/20/21 [History Confirmed 03/07/22] Testosterone [Androgel] 3 pump TD DAILY 07/09/21 [History Confirmed 03/07/22] Warfarin Sodium 0 mg PO DAILY 07/09/21 [History Confirmed 03/07/22] Escitalopram Oxalate [Lexapro] 10 mg PO HS 03/07/22 [History Confirmed 02/15 12/08] Sucralfate 1 tab PO QID 03/07/22 [History Confirmed 03/07/22] Allergies/Adverse Reactions: Allergies Allergy/AdvReac Type Severity Reaction Status Date / Time metformin Allergy Verified 03/07/22 06:59 rosuvastatin calcium AdvReac Mild Verified 03/07/22 02:23 [From Crestor] apixaban [From Eliquis] AdvReac Verified 03/07/22 06:59 - Past Medical History Past Medical History: Yes Neurological History: No Pertinent History ENT History: No Pertinent History, Other Cardiac History: No Pertinent History, Arrhythmia, Deep Vein Thrombosis Respiratory History: Asthma, Pneumonia, Pulmonary Embolism Endocrine Medical History: Other Musculoskelatal History: Arthritis GI Medical History: Diverticulosis, Gallbladder Disease, Hernia, Pancreatitis, Ulcer History: No Pertinent History Pyscho-Social History: Attention Deficit Disorder, Depression, Other Male Reproductive Disorders: No Pertinent History Comment: 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, DVT LLE, PE - Past Surgical History Past Surgical History: Yes Neuro Surgical History: No Pertinent History Cardiac History: Cardiac Catheterization Respiratory Surgery: No Pertinent History GI Surgical History: Bowel Surgery, Hernia Repair Genitourinary Surgical Hx: No Pertinent History Musculskeletal Surgical Hx: No Pertinent History Male Surgical History: Vasectomy Other Surgical History: CYST REMOVED - Social History Smoking Status: Never smoker Exposure to second hand smoke: No Alcohol: None Drug Use: none - Physical Exam Vital Signs: Vital Signs - 24 hr Temp Pulse Resp BP Pulse Ox 03/07/22 08:00 97.8 F 60 20 153/86 94 L 03/07/22 07:13 64 18 95 03/07/22 06:16 96 F 60 20 149/72 93 L 03/07/22 06:00 64 113/53 95 03/07/22 05:59 93 L 03/07/22 05:00 57 L 100/63 97 03/07/22 04:01 70 16 146/85 93 L 03/07/22 03:43 65 146/85 96 03/07/22 02:22 97.7 F 88 18 130/85 93 L General Appearance: mild distress (nauseated,belching) Neurologic Exam: alert, oriented x 3, cooperative, normal mood/affect Eye Exam: PERRL/EOMI, scleral icterus Ears, Nose, Throat Exam: normal ENT inspection Neck Exam: normal inspection Respiratory Exam: normal breath sounds Cardiovascular Exam: regular rate/rhythm Gastrointestinal/Abdomen Exam: normal bowel sounds, tenderness (epigastium), distention, other (mesh repair scar periumbilical) Extremity Exam: other (no edema) Skin Exam: other (flushed) Results - Labs Lab/Micro Results: Lab Results-Last 24 Hours 03/07/22 03/07/22 03/07/22 Range/Units 02:43 02:43 02:43 WBC 12.3 H (4.0-10.5) x10^3/uL RBC 6.68 H (4.1-5.6) x10^6/uL Hgb 19.3 H (12.5-18.0) g/dL Hct 58.1 H (42-50) % MCV 87.0 (78-100) fL MCH 28.9 (26-32) pg MCHC 33.2 (32-36) g/dL RDW 16.8 H (11.5-14.0) % Plt Count 147 L (150-450) x10^3/uL MPV 11.6 H (7.5-11.0) fL Gran % 73.8 H (36.0-66.0) % Immature Gran % (Auto) 0.4 (0.00-0.4) % Nucleat RBC Rel Count 0.0 (0.00-0.1) % Eos # (Auto) 0.05 (0-0.5) x10^3/uL Immature Gran # (Auto) 0.05 H (0.00-0.03) x10^3u/L Absolute Lymphs (auto) 2.08 (1.0-4.6) x10^3/uL Absolute Monos (auto) 0.97 (0.0-1.3) x10^3/uL Absolute Nucleated RBC 0.00 (0.00-0.01) x10^3u/L Lymphocytes % 17.0 L (24.0-44.0) % Monocytes % 7.9 (0.0-12.0) % Eosinophils % 0.4 (0.00-5.0) % Basophils % 0.5 (0.0-0.4) % Absolute Granulocytes 9.06 H (1.4-6.9) x10^3/uL Basophils # 0.06 (0-0.4) x10^3/uL PT 25.9 H (9.4-12.5) SECONDS INR 2.67 (0.8-3.0) Sodium 139 (137-145) mmol/L Potassium 4.1 (3.5-5.1) mmol/L Chloride 102 (98-107) mmol/L Carbon Dioxide 22 (22-30) mmol/L Anion Gap 19.0 H (5-15) MEQ/L BUN 9 (9-20) mg/dL Creatinine 0.97 (0.66-1.25) mg/dL Estimated GFR > 60.0 ML/MIN Glucose 123 H (74-106) mg/dL POC Glucometer (74 to 106) mg/dL Hemoglobin A1c (4.5-6.0) % Calcium 10.0 (8.4-10.2) mg/dL Total Bilirubin 5.00 H (0.2-1.3) mg/dL AST 619 H (17-59) U/L ALT 725 H (0-50) U/L Alkaline Phosphatase 214 H (38-126) U/L Serum Total Protein 8.1 (6.3-8.2) g/dL Albumin 4.8 (3.5-5.0) g/dL Amylase 3275 H (30-110) U/L Lipase Cancelled Urinalys Dipstick Clnc Urine Color (YELLOW) Urine Appearance (CLEAR) Urine pH (5-6) Ur Specific [place] (1.005-1.025) POC Urine Protein Conf (Negative) Urine Ketones (NEGATIVE) Urine Nitrite (NEGATIVE) Urine Bilirubin (NEGATIVE) Urine Urobilinogen (0-1) mg/dL Urine Leukocytes (NEGATIVE) Urine WBC (Auto) (0-5) /HPF Urine RBC (Auto) (0-2) /HPF U Epithel Cells (Auto) (FEW) /HPF Urine Bacteria (Auto) (NEGATIVE) /HPF Urine RBC (0-5) Bran/ul Urine Mucus (Auto) (NEGATIVE) /HPF Ur Culture Indicated? Urine Glucose (NEGATIVE) mg/dL Influenza Type A Ag (NEGATIVE) Influenza Type B Ag (NEGATIVE) RSV (PCR) (Negative) SARS-CoV-2 (PCR) (NEGATIVE) 03/07/22 03/07/22 03/07/22 Range/Units 04:25 06:01 08:03 WBC (4.0-10.5) x10^3/uL RBC (4.1-5.6) x10^6/uL Hgb (12.5-18.0) g/dL Hct (42-50) % MCV (78-100) fL MCH (26-32) pg MCHC (32-36) g/dL RDW (11.5-14.0) % Plt Count (150-450) x10^3/uL MPV (7.5-11.0) fL Gran % (36.0-66.0) % Immature Gran % (Auto) (0.00-0.4) % Nucleat RBC Rel Count (0.00-0.1) % Eos # (Auto) (0-0.5) x10^3/uL Immature Gran # (Auto) (0.00-0.03) x10^3u/L Absolute Lymphs (auto) (1.0-4.6) x10^3/uL Absolute Monos (auto) (0.0-1.3) x10^3/uL Absolute Nucleated RBC (0.00-0.01) x10^3u/L Lymphocytes % (24.0-44.0) % Monocytes % (0.0-12.0) % Eosinophils % (0.00-5.0) % Basophils % (0.0-0.4) % Absolute Granulocytes (1.4-6.9) x10^3/uL Basophils # (0-0.4) x10^3/uL PT (9.4-12.5) SECONDS INR (0.8-3.0) Sodium (137-145) mmol/L Potassium (3.5-5.1) mmol/L Chloride (98-107) mmol/L Carbon Dioxide (22-30) mmol/L Anion Gap (5-15) MEQ/L BUN (9-20) mg/dL Creatinine (0.66-1.25) mg/dL Estimated GFR ML/MIN Glucose (74-106) mg/dL POC Glucometer 148 H (74 to 106) mg/dL Hemoglobin A1c (4.5-6.0) % Calcium (8.4-10.2) mg/dL Total Bilirubin (0.2-1.3) mg/dL AST (17-59) U/L ALT (0-50) U/L Alkaline Phosphatase (38-126) U/L Serum Total Protein (6.3-8.2) g/dL Albumin (3.5-5.0) g/dL Amylase (30-110) U/L Lipase Urinalys Dipstick Clnc MAIN LAB Urine Color DARK YELLOW (YELLOW) Urine Appearance CLEAR (CLEAR) Urine pH 5.5 (5-6) Ur Specific [place] 1.020 (1.005-1.025) POC Urine Protein Conf TRACE (Negative) Urine Ketones MODERATE-40 (NEGATIVE) Urine Nitrite NEGATIVE (NEGATIVE) Urine Bilirubin MODERATE (NEGATIVE) Urine Urobilinogen 1 (0-1) mg/dL Urine Leukocytes NEGATIVE (NEGATIVE) Urine WBC (Auto) 3-5 (0-5) /HPF Urine RBC (Auto) 3-5 (0-2) /HPF U Epithel Cells (Auto) NONE (FEW) /HPF Urine Bacteria (Auto) RARE (NEGATIVE) /HPF Urine RBC TRACE-INTACT (0-5) Bran/ul Urine Mucus (Auto) SLIGHT (NEGATIVE) /HPF Ur Culture Indicated? YES Urine Glucose NEGATIVE (NEGATIVE) mg/dL Influenza Type A Ag NEGATIVE (NEGATIVE) Influenza Type B Ag NEGATIVE (NEGATIVE) RSV (PCR) NEGATIVE (Negative) SARS-CoV-2 (PCR) NEGATIVE (NEGATIVE) 03/07/22 Range/Units Unknown WBC (4.0-10.5) x10^3/uL RBC (4.1-5.6) x10^6/uL Hgb (12.5-18.0) g/dL Hct (42-50) % MCV (78-100) fL MCH (26-32) pg MCHC (32-36) g/dL RDW (11.5-14.0) % Plt Count (150-450) x10^3/uL MPV (7.5-11.0) fL Gran % (36.0-66.0) % Immature Gran % (Auto) (0.00-0.4) % Nucleat RBC Rel Count (0.00-0.1) % Eos # (Auto) (0-0.5) x10^3/uL Immature Gran # (Auto) (0.00-0.03) x10^3u/L Absolute Lymphs (auto) (1.0-4.6) x10^3/uL Absolute Monos (auto) (0.0-1.3) x10^3/uL Absolute Nucleated RBC (0.00-0.01) x10^3u/L Lymphocytes % (24.0-44.0) % Monocytes % (0.0-12.0) % Eosinophils % (0.00-5.0) % Basophils % (0.0-0.4) % Absolute Granulocytes (1.4-6.9) x10^3/uL Basophils # (0-0.4) x10^3/uL PT (9.4-12.5) SECONDS INR (0.8-3.0) Sodium (137-145) mmol/L Potassium (3.5-5.1) mmol/L Chloride (98-107) mmol/L Carbon Dioxide (22-30) mmol/L Anion Gap (5-15) MEQ/L BUN (9-20) mg/dL Creatinine (0.66-1.25) mg/dL Estimated GFR ML/MIN Glucose (74-106) mg/dL POC Glucometer (74 to 106) mg/dL Hemoglobin A1c 5.58 (4.5-6.0) % Calcium (8.4-10.2) mg/dL Total Bilirubin (0.2-1.3) mg/dL AST (17-59) U/L ALT (0-50) U/L Alkaline Phosphatase (38-126) U/L Serum Total Protein (6.3-8.2) g/dL Albumin (3.5-5.0) g/dL Amylase (30-110) U/L Lipase Urinalys Dipstick Clnc Urine Color (YELLOW) Urine Appearance (CLEAR) Urine pH (5-6) Ur Specific [place] (1.005-1.025) POC Urine Protein Conf (Negative) Urine Ketones (NEGATIVE) Urine Nitrite (NEGATIVE) Urine Bilirubin (NEGATIVE) Urine Urobilinogen (0-1) mg/dL Urine Leukocytes (NEGATIVE) Urine WBC (Auto) (0-5) /HPF Urine RBC (Auto) (0-2) /HPF U Epithel Cells (Auto) (FEW) /HPF Urine Bacteria (Auto) (NEGATIVE) /HPF Urine RBC (0-5) Bran/ul Urine Mucus (Auto) (NEGATIVE) /HPF Ur Culture Indicated? Urine Glucose (NEGATIVE) mg/dL Influenza Type A Ag (NEGATIVE) Influenza Type B Ag (NEGATIVE) RSV (PCR) (Negative) SARS-CoV-2 (PCR) (NEGATIVE) - Radiology Impressions Radiology Exams & Impressions: Radiology Procedures Category Date Time Status ABDOMEN AND PELVIS W/0 CONTRAS [CT] Stat Exams 03/07/22 02:21 Completed CHEST 1 VIEW (PORTABLE) Urgent Exams 03/07/22 11:12 Ordered GALLBLADDER [US] Urgent Exams 03/08/22 08:00 Ordered - Other Procedures and Tests Respiratory Therapy 03/07/22 06:16 Oxygen Nasal Cannula 2 lpm 03/07/22 07:11 Respiratory Therapy Assessment DAILY Assessment/Plan (1) Pancreatitis due to biliary obstruction Current Visit: Yes Status: Acute Qualifiers: Chronicity: acute Acute pancreatitis complication: no infection or necrosis Qualified Code(s): K85.10 - Biliary acute pancreatitis without necrosis or infection Assessment & Plan: Transfer [facility] with for ERCP,I spoke with Dr Pickett who requested super hydration. IN [place] 2 liters given at 270 then D5LR at 120. Code(s): K85.90 - ACUTE PANCREATITIS WITHOUT NECROSIS OR INFECTION, UNSP; K83.1 - OBSTRUCTION OF BILE DUCT (2) Hx pulmonary embolism Current Visit: Yes Status: Resolved Code(s): Z86.711 - PERSONAL HISTORY OF PULMONARY EMBOLISM (3) medical terminologist current use of anticoagulant Current Visit: No Status: Chronic Assessment & Plan: Coumadin held 03/07/22 and INR 03/07/22 was 2.67. Lovenox was NOT given due to marta for ERCP 03/08/22 Code(s): Z79.01 - ASSISTED (CURRENT) USE OF ANTICOAGULANTS (4) Sleep apnea Current Visit: Yes Status: Chronic Assessment & Plan: Cpap held due to nausea and dry heaving Code(s): G47.30 - SLEEP APNEA, UNSPECIFIED (5) Nausea & vomiting Current Visit: Yes Status: Acute Assessment & Plan: zophran helping Code(s): R11.2 - NAUSEA WITH VOMITING, UNSPECIFIED (6) Hyperinsulinemia Current Visit: Yes Status: Chronic Assessment & Plan: A1C 5.5% not on RX Code(s): E16.1 - OTHER HYPOGLYCEMIA (7) Pituitary benign neoplasm Current Visit: Yes Status: Chronic Assessment & Plan: Dg >10 yrs ago,not growing. Hogshead Weigher Dr Silvestre Wilson. Code(s): D35.2 - BENIGN NEOPLASM OF PITUITARY GLAND Hospital Summary - Hospital Course Hospital Course: Patient with pancreatitis due to biliary obstruction is to be transfered for higher level of care requiring ERCP . Pain from pancreatitis has been fairly well controlled on Dilaudid 0.5mg q4-6H. N/V dry heaves only has improved on Zophran IV. Patient has been NPO since admission. VSS mild elevation of B/P during super hydration and given 1 dose of Diltiazem 180 slow release then dc'd Diltiazem. Rocephin started in ER ,elevated WBC with [facility] marta for 2AM 03/08/22. - Vitals & Intake/Output Vital Signs: Vital Signs Temperature 97.8 F 03/07/22 08:00 Pulse Rate 60 03/07/22 08:00 Respiratory Rate 20 03/07/22 08:00 Blood Pressure 153/86 03/07/22 08:00 O2 Sat by Pulse Oximetry 94 L 03/07/22 08:00 Intake & Output: Intake & Output 03/04/22 03/05/22 03/06/22 03/07/22 11:59 11:59 11:59 11:59 Weight 158.3 kg - Lab Result Diagrams: 03/07/22 14:05 03/07/22 14:05 Lab Results-Last 24 Hrs: Lab Results-Last 24 Hours 03/07/22 03/07/22 03/07/22 Range/Units 02:43 02:43 02:43 WBC 12.3 H (4.0-10.5) x10^3/uL RBC 6.68 H (4.1-5.6) x10^6/uL Hgb 19.3 H (12.5-18.0) g/dL Hct 58.1 H (42-50) % MCV 87.0 (78-100) fL MCH 28.9 (26-32) pg MCHC 33.2 (32-36) g/dL RDW 16.8 H (11.5-14.0) % Plt Count 147 L (150-450) x10^3/uL MPV 11.6 H (7.5-11.0) fL Gran % 73.8 H (36.0-66.0) % Immature Gran % (Auto) 0.4 (0.00-0.4) % Nucleat RBC Rel Count 0.0 (0.00-0.1) % Eos # (Auto) 0.05 (0-0.5) x10^3/uL Immature Gran # (Auto) 0.05 H (0.00-0.03) x10^3u/L Absolute Lymphs (auto) 2.08 (1.0-4.6) x10^3/uL Absolute Monos (auto) 0.97 (0.0-1.3) x10^3/uL Absolute Nucleated RBC 0.00 (0.00-0.01) x10^3u/L Lymphocytes % 17.0 L (24.0-44.0) % Monocytes % 7.9 (0.0-12.0) % Eosinophils % 0.4 (0.00-5.0) % Basophils % 0.5 (0.0-0.4) % Absolute Granulocytes 9.06 H (1.4-6.9) x10^3/uL Basophils # 0.06 (0-0.4) x10^3/uL PT 25.9 H (9.4-12.5) SECONDS INR 2.67 (0.8-3.0) Sodium 139 (137-145) mmol/L Potassium 4.1 (3.5-5.1) mmol/L Chloride 102 (98-107) mmol/L Carbon Dioxide 22 (22-30) mmol/L Anion Gap 19.0 H (5-15) MEQ/L BUN 9 (9-20) mg/dL Creatinine 0.97 (0.66-1.25) mg/dL Estimated GFR > 60.0 ML/MIN Glucose 123 H (74-106) mg/dL POC Glucometer (74 to 106) mg/dL Hemoglobin A1c (4.5-6.0) % Calcium 10.0 (8.4-10.2) mg/dL Total Bilirubin 5.00 H (0.2-1.3) mg/dL AST 619 H (17-59) U/L ALT 725 H (0-50) U/L Alkaline Phosphatase 214 H (38-126) U/L Serum Total Protein 8.1 (6.3-8.2) g/dL Albumin 4.8 (3.5-5.0) g/dL Amylase 3275 H (30-110) U/L Lipase Cancelled Urinalys Dipstick Clnc Urine Color (YELLOW) Urine Appearance (CLEAR) Urine pH (5-6) Ur Specific [place] (1.005-1.025) POC Urine Protein Conf (Negative) Urine Ketones (NEGATIVE) Urine Nitrite (NEGATIVE) Urine Bilirubin (NEGATIVE) Urine Urobilinogen (0-1) mg/dL Urine Leukocytes (NEGATIVE) Urine WBC (Auto) (0-5) /HPF Urine RBC (Auto) (0-2) /HPF U Epithel Cells (Auto) (FEW) /HPF Urine Bacteria (Auto) (NEGATIVE) /HPF Urine RBC (0-5) Bran/ul Urine Mucus (Auto) (NEGATIVE) /HPF Ur Culture Indicated? Urine Glucose (NEGATIVE) mg/dL Influenza Type A Ag (NEGATIVE) Influenza Type B Ag (NEGATIVE) RSV (PCR) (Negative) SARS-CoV-2 (PCR) (NEGATIVE) 03/07/22 03/07/22 03/07/22 Range/Units 04:25 06:01 08:03 WBC (4.0-10.5) x10^3/uL RBC (4.1-5.6) x10^6/uL Hgb (12.5-18.0) g/dL Hct (42-50) % MCV (78-100) fL MCH (26-32) pg MCHC (32-36) g/dL RDW (11.5-14.0) % Plt Count (150-450) x10^3/uL MPV (7.5-11.0) fL Gran % (36.0-66.0) % Immature Gran % (Auto) (0.00-0.4) % Nucleat RBC Rel Count (0.00-0.1) % Eos # (Auto) (0-0.5) x10^3/uL Immature Gran # (Auto) (0.00-0.03) x10^3u/L Absolute Lymphs (auto) (1.0-4.6) x10^3/uL Absolute Monos (auto) (0.0-1.3) x10^3/uL Absolute Nucleated RBC (0.00-0.01) x10^3u/L Lymphocytes % (24.0-44.0) % Monocytes % (0.0-12.0) % Eosinophils % (0.00-5.0) % Basophils % (0.0-0.4) % Absolute Granulocytes (1.4-6.9) x10^3/uL Basophils # (0-0.4) x10^3/uL PT (9.4-12.5) SECONDS INR (0.8-3.0) Sodium (137-145) mmol/L Potassium (3.5-5.1) mmol/L Chloride (98-107) mmol/L Carbon Dioxide (22-30) mmol/L Anion Gap (5-15) MEQ/L BUN (9-20) mg/dL Creatinine (0.66-1.25) mg/dL Estimated GFR ML/MIN Glucose (74-106) mg/dL POC Glucometer 148 H (74 to 106) mg/dL Hemoglobin A1c (4.5-6.0) % Calcium (8.4-10.2) mg/dL Total Bilirubin (0.2-1.3) mg/dL AST (17-59) U/L ALT (0-50) U/L Alkaline Phosphatase (38-126) U/L Serum Total Protein (6.3-8.2) g/dL Albumin (3.5-5.0) g/dL Amylase (30-110) U/L Lipase Urinalys Dipstick Clnc MAIN LAB Urine Color DARK YELLOW (YELLOW) Urine Appearance CLEAR (CLEAR) Urine pH 5.5 (5-6) Ur Specific [place] 1.020 (1.005-1.025) POC Urine Protein Conf TRACE (Negative) Urine Ketones MODERATE-40 (NEGATIVE) Urine Nitrite NEGATIVE (NEGATIVE) Urine Bilirubin MODERATE (NEGATIVE) Urine Urobilinogen 1 (0-1) mg/dL Urine Leukocytes NEGATIVE (NEGATIVE) Urine WBC (Auto) 3-5 (0-5) /HPF Urine RBC (Auto) 3-5 (0-2) /HPF U Epithel Cells (Auto) NONE (FEW) /HPF Urine Bacteria (Auto) RARE (NEGATIVE) /HPF Urine RBC TRACE-INTACT (0-5) Bran/ul Urine Mucus (Auto) SLIGHT (NEGATIVE) /HPF Ur Culture Indicated? YES Urine Glucose NEGATIVE (NEGATIVE) mg/dL Influenza Type A Ag NEGATIVE (NEGATIVE) Influenza Type B Ag NEGATIVE (NEGATIVE) RSV (PCR) NEGATIVE (Negative) SARS-CoV-2 (PCR) NEGATIVE (NEGATIVE) 03/07/22 Range/Units Unknown WBC (4.0-10.5) x10^3/uL RBC (4.1-5.6) x10^6/uL Hgb (12.5-18.0) g/dL Hct (42-50) % MCV (78-100) fL MCH (26-32) pg MCHC (32-36) g/dL RDW (11.5-14.0) % Plt Count (150-450) x10^3/uL MPV (7.5-11.0) fL Gran % (36.0-66.0) % Immature Gran % (Auto) (0.00-0.4) % Nucleat RBC Rel Count (0.00-0.1) % Eos # (Auto) (0-0.5) x10^3/uL Immature Gran # (Auto) (0.00-0.03) x10^3u/L Absolute Lymphs (auto) (1.0-4.6) x10^3/uL Absolute Monos (auto) (0.0-1.3) x10^3/uL Absolute Nucleated RBC (0.00-0.01) x10^3u/L Lymphocytes % (24.0-44.0) % Monocytes % (0.0-12.0) % Eosinophils % (0.00-5.0) % Basophils % (0.0-0.4) % Absolute Granulocytes (1.4-6.9) x10^3/uL Basophils # (0-0.4) x10^3/uL PT (9.4-12.5) SECONDS INR (0.8-3.0) Sodium (137-145) mmol/L Potassium (3.5-5.1) mmol/L Chloride (98-107) mmol/L Carbon Dioxide (22-30) mmol/L Anion Gap (5-15) MEQ/L BUN (9-20) mg/dL Creatinine (0.66-1.25) mg/dL Estimated GFR ML/MIN Glucose (74-106) mg/dL POC Glucometer (74 to 106) mg/dL Hemoglobin A1c 5.58 (4.5-6.0) % Calcium (8.4-10.2) mg/dL Total Bilirubin (0.2-1.3) mg/dL AST (17-59) U/L ALT (0-50) U/L Alkaline Phosphatase (38-126) U/L Serum Total Protein (6.3-8.2) g/dL Albumin (3.5-5.0) g/dL Amylase (30-110) U/L Lipase Urinalys Dipstick Clnc Urine Color (YELLOW) Urine Appearance (CLEAR) Urine pH (5-6) Ur Specific [place] (1.005-1.025) POC Urine Protein Conf (Negative) Urine Ketones (NEGATIVE) Urine Nitrite (NEGATIVE) Urine Bilirubin (NEGATIVE) Urine Urobilinogen (0-1) mg/dL Urine Leukocytes (NEGATIVE) Urine WBC (Auto) (0-5) /HPF Urine RBC (Auto) (0-2) /HPF U Epithel Cells (Auto) (FEW) /HPF Urine Bacteria (Auto) (NEGATIVE) /HPF Urine RBC (0-5) Bran/ul Urine Mucus (Auto) (NEGATIVE) /HPF Ur Culture Indicated? Urine Glucose (NEGATIVE) mg/dL Influenza Type A Ag (NEGATIVE) Influenza Type B Ag (NEGATIVE) RSV (PCR) (Negative) SARS-CoV-2 (PCR) (NEGATIVE) - Radiology Exams Ordered Rad Exams-Entire Visit: Radiology Procedures Category Date Time Status ABDOMEN AND PELVIS W/0 CONTRAS [CT] Stat Exams 03/07/22 02:21 Completed CHEST 1 VIEW (PORTABLE) Urgent Exams 03/07/22 11:12 Ordered GALLBLADDER [US] Urgent Exams 03/08/22 08:00 Ordered - Procedures and Test Procedures and Tests throughout Hospitalization: Therapy Orders & Screens 03/07/22 06:16 Oxygen Nasal Cannula 2 lpm Comment: 03/07/22 06:51 RT Screen per Nursing Assess ONCE Comment: Protocol Order Physician Instructions: Greater than 3 points order RT Admission Screen Reason For Exam: Triggered on Admission Diagnosis: pancreatitis Diagnosis: pancreatitis Pneumonia: No Home O2: No Asthma: No CHF: No Home CPAP/BIPAP: Yes Home Nebs/MDI: Yes Total Points: 10 03/07/22 07:11 Respiratory Therapy Assessment DAILY Comment: Diagnosis: pancreatitis - Discharge Disposition: DC TO OTHER HOSP Condition: Fair Prescriptions: No Action Cyanocobalamin 1000 Mcg/ml [Cyanocobalamin B-12 1000 MCG/ML] 1,000 mcg IJ Q21D Warfarin Sodium 0 mg PO DAILY Testosterone [Androgel] 3 pump TD DAILY Escitalopram Oxalate [Lexapro] 10 mg PO HS Sucralfate 1 tab PO QID Additional Instructions: PO meds on hold Follow up with: DAVEY PERLA DO [Primary Care Provider] - Forms: Ambulance Transport Record, Transfer Record Inter-Agency
[2022-03-07] MEDS ORDERED: Lactated Ringers 1,000 ML IV SCH ×2 (11:30→15:15)
[2022-03-07] MEDS ORDERED: Cardizem CD PO PRN (14:07)
[2022-03-07 14:10] LABS: Absolute Neutrophil Ct (ANC) 11.33 x10^3/uL (1.4-6.9); Basophil (Absolute #) 0.02 x10^3/uL (0-0.4); Eosinophil (Absolute #) 0 x10^3/uL (0-0.5); Hematocrit 58.2 % (42-50); Hemoglobin 19.4 g/dL (12.5-18.0); Lymphocyte (Absolute #) 0.57 x10^3/uL (1.0-4.6); Lymphocytes % 4.5 % (24.0-44.0); Mean Cell Volume 87.8 fL (78-100); Mean Corpuscular Hemoglobin 29.3 pg (26-32); Mean Corpuscular Hgb Concent. 33.3 g/dL (32-36); Mean Platelet Volume 9.7 fL (7.5-11.0); Monocyte (Absolute #) 0.62 x10^3/uL (0.0-1.3); Monocytes % 4.9 % (0.0-12.0); Platelet Count 183 x10^3/uL (150-450); Red Blood Count 6.63 x10^6/uL (4.1-5.6); Red Cell Distribution Width 16.7 % (11.5-14.0); White Blood Count 12.6 x10^3/uL (4.0-10.5)
[2022-03-07 14:37] LABS: ALKALINE PHOSPHATASE 167 U/L (38-126); ANION GAP 12.6 MEQ/L (5-15); BLOOD UREA NITROGEN 10 mg/dL (9-20); CHLORIDE 102 mmol/L (98-107); Calcium 8.8 mg/dL (8.4-10.2); Carbon Dioxide 28 mmol/L (22-30); Creatinine 1 0.98 mg/dL (0.66-1.25); EST GLOMERULAR FILTRATION RATE > 60.0 ML/MIN; Glucose 137 mg/dL (74-106); NT PRO BNP 143 pg/mL (0-900); Potassium 4.1 mmol/L (3.5-5.1); SGOT/AST 522 U/L (17-59); SGPT/ALT 617 U/L (0-50); SODIUM 138 mmol/L (137-145)
[2022-03-07] MEDS ORDERED: DEXTROSE 10% 250 ML 250 ML IV SCH (15:00)
[2022-03-07] MEDS ORDERED: Cardizem CD PO SCH (15:00)
--- NOTE | 2022-03-07 15:17 | XRAY ---
Indication: Abdomen pain. Comparison: September 02, 2021. Portable chest less inflated with worsening mild bibasilar subsegmental atelectasis/scarring. Remaining heart and upper lungs unremarkable. Bony thorax intact again with mild degenerative changes. Comment: Preliminary interpretation made by [facility]. No critical discrepancy.
[2022-03-07 18:09] LABS: Slide Review 1 YES
[2022-03-07 20:24] VITALS: O2SAT 91
[2022-03-07] MEDS ORDERED: Dextrose 5%-Lr IV Solution 1000 ML 1,000 ML IV SCH (21:00)
[2022-03-07] MEDS ORDERED: Dextrose 5%-Lr IV Solution 1000 ML 1,000 ML IV ONE (21:01)
[2022-03-07] MEDS ORDERED: ROCEPHIN 1 Gm-D5w 50 ml Bag** 1 G/50 ML IVPB IV SCH (22:00)
[2022-03-07] MEDS ORDERED: PROTONIX 40 MG IV IV SCH (22:00)
[2022-03-07] MEDS ORDERED: Lexapro PO SCH (22:00)
[2022-03-08 00:20] VITALS: BP 130/62; PULSE 79
[2022-03-08] MEDS: Hydromorphone 1 mg/ml Injection IV PRN (01:09)
== END 2022-03-08 02:23 | DRG 438 ==
LOC: ED 02:08 → MED SURG 06:15
PROVIDERS: ADMIT Family Medicine; ATTEND Family Medicine
DX: K85.10 Biliary acute pancreatitis without necrosis or infection (principal); K83.1 Obstruction of bile duct; E23.0 Hypopituitarism; R11.2 Nausea with vomiting, unspecified; E16.1 Other hypoglycemia; G47.30 Sleep apnea, unspecified; D35.2 Benign neoplasm of pituitary gland; Z86.711 Personal history of pulmonary embolism; Z79.01 Long term (current) use of anticoagulants; Z79.899 Other long term (current) drug therapy; Z20.828 Contact with and (suspected) exposure to other viral communicable diseases
CPT/HCPCS: 0241U; 36000; 36415; 71045; 74176; 80053; 81015; 82150; 82947; 83036; 83690; 83880; 85025; 85610; 87086; 93005; 94760; 96360; 96365; 96374; 99285; 99291; J0696; J1170; J2405; J3010; A9270-GY

== ENCOUNTER 2024-05-10 06:07 | Day surgery (SDC) | payer MEDICARE ==
[2012-07-28 19:58] VITALS: BP 113/71
== END 2024-05-10 06:25 | disposition home or self-care (01) ==
LOC: SDC 06:07
PROVIDERS: ATTEND Family Medicine
DX: Z53.8 Procedure and treatment not carried out for other reasons (principal)

== ENCOUNTER 2024-06-06 05:45 | Day surgery (SDC) | payer MEDICARE ==
[2024-06-06 06:09] VITALS: RESP 18; O2SAT 95
[2024-06-06] MEDS: Lactated Ringers 1,000 ML IV SCH (06:47)
[2024-06-06] MEDS ORDERED: Xylocaine-Mpf 2% 5 Ml Vial ONE (07:02)
[2024-06-06] MEDS ORDERED: DIPRIVAN 200 MG/20 ML IV ONE ×2 (07:02→07:20)
[2024-06-06] MEDS ORDERED: Versed 2 MG/2 ML Injection ONE (07:02)
[2024-06-06 07:51] VITALS: TEMP 97
[2024-06-06 08:13] VITALS: BP 136/79; PULSE 65
--- NOTE | 2024-06-06 17:45 | OP ---
SURGERY DATE/TIME: 06/06/2024 6845 - [id number] PREOPERATIVE DIAGNOSIS: Screening colonoscopy. POSTOPERATIVE DIAGNOSIS: 1) Normal colon. 2) Poor bowel prep. 3) Diverticulosis. PROCEDURE: Colonoscopy. SURGEON: Michael Lind MD ANESTHESIA: MAC by Nino Rose CRNA. ESTIMATED BLOOD LOSS: None. SPECIMEN: None. DESCRIPTION OF PROCEDURE AND FINDINGS: After informed written consent was obtained, patient was taken to endoscopy suite. He was placed in left lateral decubitus position and anesthesia was titrated to desired level of consciousness. Digital rectal exam showed normal sphincter tone and no internal lesions. Scope was inserted in the rectum and sequentially the entire colonic mucosa was traversed. The level of cecum was reached and verified under direct visualization of ileocecal valve. Upon withdrawal, careful mucosal inspection revealed no gross lesions or suspicious areas. Although there was liquid and semisolid stool scattered throughout most of the length of the colon in different areas, view was felt to be adequate. Prior to withdrawal, retroflexion was performed and showed no internal lesions. Scope was removed, and patient was transferred to the recovery room in good condition.
== END 2024-06-06 09:38 | disposition home or self-care (01) ==
LOC: SDC 05:45
PROVIDERS: ATTEND Family Medicine
DX: Z12.11 Encounter for screening for malignant neoplasm of colon (principal); E11.9 Type 2 diabetes mellitus without complications; K57.30 Diverticulosis of large intestine without perforation or abscess without bleeding
CPT/HCPCS: 82947; G0121; J2250; J2704

== ENCOUNTER 2025-02-21 14:48 | Emergency (ER) | payer MEDICARE ==
[2025-02-21 15:35] VITALS: BP 141/108; PULSE 75; RESP 10; TEMP 98; O2SAT 95
--- NOTE | 2025-02-21 15:59 | ERPHSYRPT ---
- History of Present Illness Time Seen by Provider: 02/21/25 14:51 Source: patient Exam Limitations: no limitations Patient Subjective Stated Complaint: C/O possible abscess to RLE. Patient states that it has improved since being on his antibiotics. He states he was just at [facility]'s office and Dr. Carrington attempted to aspirate the area; only a small amount of blood aspirated. Triage Nursing Assessment: Patient ambulated back to ER. He is alert and oriented. Dressing removed from RLE to reveal a skin aleration to the anterior aspect. Dressing that was removed has a scant amount of blood on it. Abscess with redness and warmth around it; patient reports this as improved. 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 Patient reported it has gone down away a lot but still has some swelling. He went to see his primary care today who tried to aspirate but could not and is sent in here for further evaluation to rule out abscess/hematoma. Patient has no fever or chills. No difficulty ambulation. No difficulty movements of the knee. No open wound. Allergies/Adverse Reactions: heparin Adverse Reaction (Severe, Verified 02/21/25 15:15) Patient reports having HIT in the past rosuvastatin calcium [From Crestor] Adverse Reaction (Mild, Verified 02/21/25 15:15) apixaban [From Eliquis] Adverse Reaction (Verified 02/21/25 15:15) Home Medications: Warfarin Sodium 4 mg PO UD 07/09/21 [History] Acetaminophen 500 mg [Tylenol Extra Strength 500 mg] 1,000 mg PO TID PRN 04/09/22 [History] Duloxetine HCl 30 mg [Cymbalta 30 MG Capsule] 30 mg PO DAILY 07/06/22 [History] Testosterone Cypionate 200 mg IM Q14D 10/21/22 [History] Metformin HCl 500 mg [Glucophage 500 MG] 500 mg PO TIDWM 12/04/23 [History] Albuterol Sulfate [Proair Respiclick] 90 mcg IH UD 04/10/24 [History] Cabergoline 0.5 mg PO WEEKLY 04/10/24 [History] Fluticasone Propionate 50 mcg IH DAILY 04/10/24 [History] L.acidoph,Paracasei, B.lactis [Probiotic] 1 each PO DAILY 04/10/24 [History] Magnesium Citrate and Oxide [Magnesium] 250 mg PO DAILY 04/10/24 [History] Trazodone HCl 100 mg PO HS 04/10/24 [History] Vitamin B Complex 1 each PO DAILY 04/10/24 [History] Empagliflozin [Jardiance] 25 mg PO DAILY 08/21/24 [History] Hx Tetanus, Diphtheria Vaccination/Date Given: Yes Hx Influenza Vaccination/Date Given: No Hx Pneumococcal Vaccination/Date Given: No Immunizations Up to Date: Yes Travel Risk - International Travel Have you traveled outside of the country in past 3 weeks: No - Emerging Infectious Disease Are you exhibiting symptoms associated with any current EIDs: No - Review of Systems Constitutional: No Symptoms Ears, Nose, & Throat: No Symptoms Respiratory: No Symptoms Cardiac: No Symptoms Abdominal/Gastrointestinal: No Symptoms Genitourinary Symptoms: No Symptoms Musculoskeletal: Injury Skin: No Symptoms Neurological: No Symptoms Endocrine: No Symptoms Hematologic/Lymphatic: No Symptoms - Past Medical History Pertinent Past Medical History: Yes Neurological History: No Pertinent History ENT History: Other Cardiac History: Peripheral Vascular Disease, Other Respiratory History: Sleep Apnea Endocrine Medical History: Diabetes Type II Musculoskeletal History: Osteoarthritis GI Medical History: Diverticulosis, Gallbladder Disease, Hernia, Pancreatitis, Ulcer History: No Pertinent History Psycho-Social History: Attention Deficit Disorder, Depression, Other Male Reproductive Disorders: No Pertinent History Other Medical History: DVT, Physician Relations Specialist: Dr. Amanda - Past Surgical History Past Surgical History: Yes Neuro Surgical History: No Pertinent History Cardiac: Cardiac Catheterization Respiratory: No Pertinent History Gastrointestinal: Bowel Surgery, Cholecystectomy, Hernia Repair Genitourinary: No Pertinent History Musculoskeletal: Joint Replacement Male Surgical History: Vasectomy Other Surgical History: CYST REMOVED, right knee replacement - Social History Smoking Status: Never smoker Exposure to second hand smoke: No Drug Use: none - Social Determinants of Health Will the patient participate in the screening: Declined to provide - Nursing Vital Signs Nursing Vital Signs: Initial Vital Signs Temperature 98 F 02/21/25 15:05 Pulse Rate 75 02/21/25 15:05 Respiratory Rate 10 L 02/21/25 15:05 Blood Pressure 141/108 02/21/25 15:05 O2 Sat by Pulse Oximetry 95 02/21/25 15:05 Pain Scale Pain Intensity 0 - Physical Exam General Appearance: no apparent distress, alert Neck Exam: normal inspection, supple, full range of motion Cardiovascular/Respiratory Exam: normal breath sounds, regular rate/rhythm Gastrointestinal/Abdominal Exam: non-tender, soft, no organomegaly Back Exam: normal inspection, normal range of motion Hips Exam: bilateral: non-tender, normal inspection, normal range of motion Legs Exam: right leg: pain, soft tissue tenderness, swelling (Upper anterior leg just below the tibial tuberosity, soft consistency, no fluctuation.), left leg: non-tender, normal inspection, normal range of motion Knees Exam: bilateral knee: non-tender, normal inspection, normal range of motion, no evidence of injury Neuro/Tendon Exam: normal sensation, normal motor functions Mental Status Exam: alert, oriented x 3, cooperative Skin Exam: normal color SpO2 Interpretation: normal SpO2: 95 O2 Delivery: Room Air Ordered Tests: Active Orders 24 hr Category Date Time Status VENOUS UNILAT/LIMITED EXTREMIT [US] Stat Exams 02/21/25 15:50 Taken CBC W DIFF Stat Lab 02/21/25 16:00 Completed CMP Stat Lab 02/21/25 16:00 Completed PROTIME WITH INR Stat Lab 02/21/25 16:00 Completed Lab/Rad Data: Laboratory Result Diagrams 02/21/25 16:00 02/21/25 16:00 Laboratory Results 02/21/25 02/21/25 02/21/25 Range/Units 16:00 16:00 16:00 WBC 6.2 (4.23-9.07) x10^3/uL RBC 5.62 (4.63-6.08) x10^6/uL Hgb 15.5 (13.7-17.5) g/dL Hct 48.3 (40.1-51.0) % MCV 85.9 (79.0-92.2) fL MCH 27.6 (25.7-32.2) pg MCHC 32.1 L (32.3-36.5) g/dL RDW 15.7 H (11.6-14.4) % Plt Count 190 (163-337) x10^3/uL MPV 9.4 (9.4-12.4) fL Gran % 56.2 (34.0-67.9) % Immature Gran % (Auto) 0.3 (0.001-0.429) % Nucleat RBC Rel Count 0.0 (0.00-0.2) % Eos # (Auto) 0.21 (0.04-0.54) x10^3/uL Immature Gran # (Auto) 0.02 (0.001-0.031) x10^3u/L Absolute Lymphs (auto) 1.88 (1.32-3.57) x10^3/uL Absolute Monos (auto) 0.52 (0.30-0.82) x10^3/uL Absolute Nucleated RBC 0.00 (0.00-0.012) x10^3u/L Lymphocytes % 30.6 (21.8-53.1) % Monocytes % 8.5 (5.3-12.2) % Eosinophils % 3.4 (0.8-7.0) % Basophils % 1.0 (0.2-1.2) % Absolute Granulocytes 3.46 (1.78-5.38) x10^3/uL Basophils # 0.06 (0.01-0.08) x10^3/uL PT 19.7 H (9.4-12.5) SECONDS INR 1.88 (0.8-3.0) Sodium 138 (135-145) mmol/L Potassium 4.4 (3.5-5.1) mmol/L Chloride 98 (98-107) mmol/L Carbon Dioxide 29 (22-30) mmol/L Anion Gap 15.7 H (5-15) MEQ/L BUN 17 (9-20) mg/dL Creatinine 0.99 (0.66-1.25) mg/dL Estimated GFR 82.5 ML/MIN Glucose 109 H (74-106) mg/dL Calcium 9.3 (8.4-10.2) mg/dL Total Bilirubin 0.60 (0.2-1.3) mg/dL AST 32 (17-59) U/L ALT 23 (0-50) U/L Alkaline Phosphatase 103 (38-126) U/L Serum Total Protein 7.5 (6.3-8.2) g/dL Albumin 4.5 (3.5-5.0) g/dL - Progress Progress: re-examined Progress Note: 02/21/25 17:58 Differential diagnosis include but not limited to: Hematoma/DVT/abscess 69-year-old is evaluated in the ER for right leg swelling/hematoma after 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 He has finished course of antibiotics and no erythema redness or signs of cellulitis noticed. Has soft swelling, I have tried to aspirate, small amount of dark blood drained. Has stable H&H. Chemistries fairly unremarkable and INR of 1.88. Patient ultrasound lower extremity showed nonocclusive DVT stable from previous studies and no new occlusive thrombus. Has hematoma, does not seem like it is abscess per preliminary report, official final read is pending. I would do Cosme wrap, discussed the natural course of hematoma resolution, taking Tylenol as needed and outpatient follow-up. As no osseous injury/tenderness, do not think patient needs any other workup and is stable for discharge. Complexity of problems addressed: Acute moderate Complexity of data reviewed/analyzed: Moderate Risk of complication: Low risk Counseled pt/family regarding: lab results, diagnosis, need for follow-up, rad results Medical Desision Making - Diagnostic Testing Diagnostic test were ordered, analyzed, and reviewed by me: Yes Radiological Interpretation: Reviewed by me - Departure Departure Disposition: Home Clinical Impression: Leg hematoma Condition: Stable Critical Care Time: No Referrals: [facility] [LOCATION, UNKNOWN] - Follow up with PCP 1 day Instructions: Minor contusion - ED discharge instructions Additional Instructions: Follow-up with primary care for reevaluation. Take Tylenol as needed. Return to ER for increasing pain in the area, redness, swelling, discharge or if develop fever chills etc. Continue with your current medications.
[2025-02-21 16:09] LABS: Absolute Neutrophil Ct (ANC) 3.46 x10^3/uL (1.78-5.38); Basophil (Absolute #) 0.06 x10^3/uL (0.01-0.08); Eosinophil % 3.4 % (0.8-7.0); Eosinophil (Absolute #) 0.21 x10^3/uL (0.04-0.54); Hematocrit 48.3 % (40.1-51.0); Hemoglobin 15.5 g/dL (13.7-17.5); IMMATURE GRAN # 0.02 x10^3u/L (0.001-0.031); IMMATURE GRAN % 0.3 % (0.001-0.429); Lymphocyte (Absolute #) 1.88 x10^3/uL (1.32-3.57); Lymphocytes % 30.6 % (21.8-53.1); Mean Cell Volume 85.9 fL (79.0-92.2); Mean Corpuscular Hemoglobin 27.6 pg (25.7-32.2); Mean Corpuscular Hgb Concent. 32.1 g/dL (32.3-36.5); Mean Platelet Volume 9.4 fL (9.4-12.4); Monocyte (Absolute #) 0.52 x10^3/uL (0.30-0.82); Monocytes % 8.5 % (5.3-12.2); Neutrophil % 56.2 % (34.0-67.9); Platelet Count 190 x10^3/uL (163-337); Red Blood Count 5.62 x10^6/uL (4.63-6.08); Red Cell Distribution Width 15.7 % (11.6-14.4); White Blood Count 6.2 x10^3/uL (4.23-9.07)
[2025-02-21 16:25] LABS: ALBUMIN 4.5 g/dL (3.5-5.0); ANION GAP 15.7 MEQ/L (5-15); BILIRUBIN,TOTAL 0.6 mg/dL (0.2-1.3); Calcium 9.3 mg/dL (8.4-10.2); Creatinine 1 0.99 mg/dL (0.66-1.25); EST GLOMERULAR FILTRATION RATE 82.5 ML/MIN; Potassium 4.4 mmol/L (3.5-5.1); Total Protein 7.5 g/dL (6.3-8.2)
[2025-02-21 16:58] LABS: INR 1.88 (0.8-3.0); PROTIME 19.7 SECONDS (9.4-12.5)
--- NOTE | 2025-02-22 09:19 | XRAY ---
Indication: Right leg swelling and hematoma. Two-dimensional sonogram and color Doppler imaging major venous vessels right leg performed. Comparison: October 20, 2020 Again chronic appearing nonoccluding thrombi seen throughout the femoral and popliteal veins. Remaining visualized deep venous vessels right leg negative for thrombosis. Patent veins demonstrate normal compressibility and normal venous waveforms. Targeted soft tissue ultrasound anterior lower leg now demonstrates 8.0 x 2.3 x 4.1 cm heterogeneously subcutaneous fluid collection without abnormal color flow presumed clinically reported hematoma. Impression: 1. Again chronic appearing nonoccluding DVTs as detailed. 2. Anterior lower leg hematoma.
== END 2025-02-21 18:32 | disposition home or self-care (01) ==
LOC: ED 14:48
DX: S80.11XA Contusion of right lower leg, initial encounter (principal); W22.8XXA Striking against or struck by other objects, initial encounter; Y92.79 Other farm location as the place of occurrence of the external cause; M79.661 Pain in right lower leg; Z79.01 Long term (current) use of anticoagulants; Z79.84 Long term (current) use of oral hypoglycemic drugs; Z79.899 Other long term (current) drug therapy
CPT/HCPCS: 36415; 80053; 85025; 85610; 93971; 99284